=== PATIENT | male | born 1960 | race Caucasian/White ===

== ENCOUNTER 2019-03-08 16:44 | Emergency (ER) | payer MEDICARE ==
--- NOTE | 2019-03-08 17:20 | XRAY ---
Indication: Altered mental status. Syncope. Comparison: None Portable chest demonstrates normal heart and lungs. Bony thorax intact with mild degenerative changes.
--- NOTE | 2019-03-08 17:23 | XRAY ---
Indication: Slurred speech and syncope. Possible stroke. Multiple contiguous axial images obtained through the head without contrast. Comparison: None Age-appropriate global atrophy and minimal periventricular degenerative micro-ischemia bilaterally. Small 1.4 cm focus old infarct right basal ganglia and remote appearing right internal capsule lacunar infarcts posteriorly. No acute intracranial hemorrhage, abnormal extra-axial fluid collection, or mass effect. Fourth ventricle is midline without hydrocephalus. Dean-white matter differentiation preserved. Bony calvarium intact. There is opacification of the visualized left maxillary sinus. Impression: 1. Normal aging brain including atrophy and minimal degenerative microsphere. 2. Old right basal ganglia infarct and right internal capsule lacunar infarcts. 3. Left maxillary sinus disease. 4. No acute intracranial abnormalities. CTDI 56.98
[2019-03-08 18:22] LABS: ALBUMIN 4.1 g/dL (3.5-5.0); ALKALINE PHOSPHATASE 120 U/L (38-126); ANION GAP 15.6 MEQ/L (5-15); BLOOD UREA NITROGEN 30 mg/dL (9-20); CHLORIDE 100 mmol/L (98-107); Calcium 9.5 mg/dL (8.4-10.2); Carbon Dioxide 27 mmol/L (22-30); Creatinine 1 1.29 mg/dL (0.66-1.25); Glucose 102 mg/dL (74-106); Potassium 3.8 mmol/L (3.5-5.1); SGOT/AST 32 U/L (17-59); SGPT/ALT 37 U/L (0-50); SODIUM 138 mmol/L (137-145); Total Protein 7.7 g/dL (6.3-8.2)
[2019-03-08 18:23] LABS: ETHYL ALCOHOL < 10 mg/dL (0-10)
[2019-03-08 18:39] LABS: Absolute Neutrophil Ct (ANC) 6.23 (1.4-6.9); BASOPHIL % 0.3 % (0.0-0.4); Basophil (Absolute #) 0.03 (0-0.4); Eosinophil % 2.9 % (0.00-5.0); Eosinophil (Absolute #) 0.27 (0-0.5); Hematocrit 45.5 % (42-50); Hemoglobin 15.4 gm/dl (12.5-18.0); Lymphocyte (Absolute #) 1.63 (1.0-4.6); Lymphocytes % 17.8 % (24.0-44.0); Mean Cell Volume 90.1 fl (78-100); Mean Corpuscular Hemoglobin 30.5 pg (26-32); Mean Corpuscular Hgb Concent. 33.8 g/dl (32-36); Mean Platelet Volume 10.6 fl (6-9.5); Monocytes % 10.9 % (0.0-12.0); Neutrophil % 68.1 % (36.0-66.0); Platelet Count 231 K/mm3 (150-450); Red Blood Count 5.05 M/mm3 (4.1-5.6); Red Cell Distribution Width 13.9 % (11.5-14.0); White Blood Count 9.2 K/mm3 (4.0-10.5)
--- NOTE | 2019-03-08 19:04 | ERPHSYRPT ---
- History of Present Illness Time Seen by Provider: 03/08/19 17:40 Patient Subjective Stated Complaint: Syncope Triage Nursing Assessment: Patient brought to ED via EMS and transferred to bed with assist 2. Patient A+O X3. Patient's skin pink, warm and dry. Patient denies pain or discomfort. Patient's stated patient was found "passed out " earlier today and was taken per EMS to [facility]. Patient was sent home due to hospital not finding anything wrong. Patient's left to get children from school and found patient "passed out" again. Patient doesn 't remember events. Physician History: ppatient is a 50-year-old white male with a history of multiple CVAs and coronary artery disease his last CVA was January 17 bleeding with some left- sided deficits. He was found unresponsive in the hallway by the time EMS got him and brought him here he was alert and oriented x4 this problem started earlier in the day when physical therapy and noticed his blood pressure was 80/ 50 they encouraged him to go to bring count A. he was there he was observed for 2 hours I cannot find any record of orthostatic blood pressure intact he was sent home and than as mentioned above was found unresponsive in the topete. Witnessed: by family Prior Episodes: multiple episodes today Timing/Duration: today Precipitating Factors: unknown Context: standing Charcter of event(s): collapsed, felt faint Allergies/Adverse Reactions: No Known Drug Allergies Allergy (Unverified 03/08/19 16:47) Hx Influenza Vaccination/Date Given: No Hx Pneumococcal Vaccination/Date Given: Yes Immunizations Up to Date: Yes - Past Medical History Pertinent Past Medical History: Yes Neurological History: Stroke, TIA, Other ENT History: No Pertinent History Cardiac History: Hypertension, Myocardial Infarction ([place]) Respiratory History: No Pertinent History Endocrine Medical History: No Pertinent History Musculoskeletal History: Arthritis GI Medical History: No Pertinent History History: No Pertinent History Psycho-Social History: Depression Male Reproductive Disorders: No Pertinent History - Past Surgical History Past Surgical History: Yes Neuro Surgical History: No Pertinent History Cardiac: No Pertinent History Respiratory: No Pertinent History Gastrointestinal: Cholecystectomy Genitourinary: No Pertinent History Musculoskeletal: Joint Replacement Male Surgical History: No Pertinent History Other Surgical History: Left total knee replacement - Social History Smoking Status: Current every day smoker How long have you smoked: years Exposure to second hand smoke: No Drug Use: none Patient Lives Alone: No - Review of Systems Constitutional: No Fever, No Chills Eyes: No Symptoms Ears, Nose, & Throat: No Symptoms Respiratory: No Cough, No Dyspnea Cardiac: No Chest Pain, No Edema, No Syncope Abdominal/Gastrointestinal: No Abdominal Pain, No Nausea, No Vomiting, No Diarrhea Genitourinary Symptoms: No Dysuria Musculoskeletal: No Back Pain, No Neck Pain Skin: No Rash Neurological: Dizziness, No Focal Weakness, No Sensory Changes Psychological: No Symptoms Endocrine: No Symptoms All Other Systems: Reviewed and Negative Physical Exam - Nursing Vital Signs Nursing Vital Signs: Initial Vital Signs Temperature 98.0 F 03/08/19 16:48 Pulse Rate 67 03/08/19 16:48 Respiratory Rate 18 03/08/19 16:48 Blood Pressure 112/77 03/08/19 16:48 O2 Sat by Pulse Oximetry 100 03/08/19 16:48 Pain Scale Pain Intensity 0 - [place] Coma Scale Best Eye Response ([place]): (4) open spontaneously Best Verbal Response ([place]): (5) oriented Best Motor Response ([place]): (6) obeys commands [place] Total: 15 - Physical Exam General Appearance: no apparent distress, alert Eye Exam: bilateral eye: PERRL, EOMI Ears, Nose, Throat Exam: normal ENT inspection, pharynx normal, moist mucous membranes Neck Exam: normal inspection, non-tender, supple, full range of motion Respiratory: normal breath sounds, lungs clear, No chest tenderness, No respiratory distress Cardiovascular: regular rate/rhythm, capillary refill <2 sec, No murmur, No pulse deficit Gastrointestinal: soft, No tenderness, No distention, No mass Back Exam: normal inspection, normal range of motion, No CVA tenderness, No vertebral tenderness Extremity Exam: normal inspection, normal range of motion, pelvis stable, No tenderness Mental Status: alert, 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, 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 Exam: normal speech, PERRL, No facial droop Coordination/Gait: normal finger to nose Motor/Sensory: no motor deficit, no sensory deficit, no pronator drift Skin Exam: normal color, warm, dry, No rash SpO2: 96 - Course Nursing assessment & vital signs reviewed: Yes EKG Interpreted by Me: RATE (70), Sinus Rhythm, NORMAL AXIS, Non-specific ST Changes Ordered Tests: Active Orders 24 hr Category Date Time Status EKG-ER Only STAT Care 03/08/19 16:49 Active NPO (ED) STAT Care 03/08/19 16:48 Active Orthostatic Vital Signs STAT Care 03/08/19 16:49 Active CHEST 1 VIEW (PORTABLE) Stat Exams 03/08/19 16:48 Completed HEAD WITHOUT CONTRAST [CT] Stat Exams 03/08/19 16:48 Completed CBC W DIFF Stat Lab 03/08/19 18:30 Completed CMP Stat Lab 03/08/19 18:05 Completed ETHYL ALCOHOL Stat Lab 03/08/19 18:05 Completed Lactic Acid Stat Lab 03/08/19 18:35 Completed MAGNESIUM Stat Lab 03/08/19 18:05 Completed PTT Stat Lab 03/08/19 18:30 Received TROPONIN Q3H Lab 03/08/19 18:30 Received TROPONIN Q3H Lab 03/08/19 20:00 Ordered TROPONIN Q3H Lab 03/08/19 23:00 Ordered TROPONIN Q3H Lab 03/09/19 02:00 Ordered TROPONIN Q3H Lab 03/09/19 05:00 Ordered UA W/RFX UR CULTURE Stat Lab 03/08/19 18:48 Ordered Urine Triage Profile Stat Lab 03/08/19 18:48 Ordered Lab/Rad Data: Laboratory Result Diagrams 03/08/19 18:30 03/08/19 18:05 Laboratory Results 03/08/19 03/08/19 03/08/19 Range/Units 18:35 18:30 18:05 WBC 9.2 (4.0-10.5) K/mm3 RBC 5.05 (4.1-5.6) M/mm3 Hgb 15.4 (12.5-18.0) gm/dl Hct 45.5 (42-50) % MCV 90.1 (78-100) fl MCH 30.5 (26-32) pg MCHC 33.8 (32-36) g/dl RDW 13.9 (11.5-14.0) % Plt Count 231 (150-450) K/mm3 MPV 10.6 H (6-9.5) fl Gran % 68.1 H (36.0-66.0) % Eos # (Auto) 0.27 (0-0.5) Absolute Lymphs (auto) 1.63 (1.0-4.6) Absolute Monos (auto) 1.00 (0.0-1.3) Lymphocytes % 17.8 L (24.0-44.0) % Monocytes % 10.9 (0.0-12.0) % Eosinophils % 2.9 (0.00-5.0) % Basophils % 0.3 (0.0-0.4) % Absolute Granulocytes 6.23 (1.4-6.9) Basophils # 0.03 (0-0.4) Sodium 138 (137-145) mmol/L Potassium 3.8 (3.5-5.1) mmol/L Chloride 100 (98-107) mmol/L Carbon Dioxide 27 (22-30) mmol/L Anion Gap 15.6 H (5-15) MEQ/L BUN 30 H (9-20) mg/dL Creatinine 1.29 H (0.66-1.25) mg/dL Estimated GFR > 60.0 ML/MIN Glucose 102 (74-106) mg/dL Lactic Acid 1.7 (0.4-2.0) Calcium 9.5 (8.4-10.2) mg/dL Magnesium 2.0 (1.6-2.3) mg/dL Total Bilirubin 0.60 (0.2-1.3) mg/dL AST 32 (17-59) U/L ALT 37 (0-50) U/L Alkaline Phosphatase 120 (38-126) U/L Serum Total Protein 7.7 (6.3-8.2) g/dL Albumin 4.1 (3.5-5.0) g/dL Ethyl Alcohol < 10 (0-10) mg/dL - Progress Progress: improved - Departure Referrals: DELMI BOLAND MD [Primary Care Provider] -
[2019-03-08 19:26] LABS: Appearance CLOUDY (CLEAR); Bilirubin NEGATIVE (NEGATIVE); Blood SMALL Ery/ul (0-5); Glucose NEGATIVE (NEGATIVE); Ketones NEGATIVE (NEGATIVE); Leukocyte Esterase TRACE (NEGATIVE); Mucus SLIGHT /HPF (NEGATIVE); Nitrite NEGATIVE (NEGATIVE); Protein,Urine Dip 30 (Negative); RBC 0-2 /HPF (0-2); Specific Gravity 1.018 (1.005-1.025); Urobilinogen 2 mg/dL (0-1); WBC 0-2 /HPF (0-5)
[2019-03-08 19:29] LABS: Amphetamine,Urine NEGATIVE (NEGATIVE); Barbiturate,Urine NEGATIVE (NEGATIVE); Benzodiazepine,Urine NEGATIVE (NEGATIVE); Methadone,Urine NEGATIVE (NEGATIVE); Opiate,Urine NEGATIVE (NEGATIVE); PCP,Urine NEGATIVE (NEGATIVE); THC,Urine NEGATIVE (NEGATIVE)
[2019-03-08 19:34] LABS: Cocaine,Urine NEGATIVE (NEGATIVE)
[2019-03-08 20:56] VITALS: BP 127/80; PULSE 62; O2SAT 95
== END 2019-03-08 20:50 | disposition critical access hospital (66) ==
LOC: ED 16:44
DX: R55 Syncope and collapse (principal); I25.10 Atherosclerotic heart disease of native coronary artery without angina pectoris; Z86.73 Personal history of transient ischemic attack (TIA), and cerebral infarction without residual deficits; I10 Essential (primary) hypertension
CPT/HCPCS: 36415; 70450; 71045; 80053; 80307; 81001; 83605; 83735; 84484; 85025; 85730; 93005; 99285; G0480

== ENCOUNTER 2022-02-27 12:20 | Observation (INO) | payer MEDICARE ==
--- NOTE | 2022-02-27 12:28 | ERPHSYRPT ---
- History of Present Illness Time Seen by Provider: 02/27/22 12:27 Source: patient, family, EMS Exam Limitations: physical impairment Patient Subjective Stated Complaint: slurred speech and L sided weakness since last night Triage Nursing Assessment: . Physician History: This is a 61-year-old white male patient brought in by ambulance service because of weakness and strokelike symptoms. This patient states that his symptoms began approximately 9 PM yesterday on 02/26/2022. Patient symptoms persisted throughout the night and into the morning. Patient has a history of 11 CVAs in the past with left-sided residual weakness and multiple TIAs. Patient has had syncopal episodes in the past as well. Patient is on Plavix. He denies head injury. He denies headache. His primary symptoms have been blurred vision, double vision and slurred speech. He states he does not normally have those symptoms. He denies chest pain. He denies abdominal pain. He is not short of breath. Time of Onset/Last Time Seen Normal: Prior to 9 PM yesterday Timing/Duration: yesterday Severity: moderate Character of Deficits: new weakness, impaired speech, vision problems Deficits: decrease ability to walk Baseline/Normal Cognition: alert 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 Current Cognition: alert 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 Baseline Gait: walks w/o assistance Associated Symptoms: slurred speech, vision changes, No confusion, No loss of consciousness, No chest pain Allergies/Adverse Reactions: No Known Drug Allergies Allergy (Verified 02/27/22 12:27) Home Medications: AMITRIPTYLINE HCL 50 mg Tab [AMITRIPTYLINE HCL 50 mg Tablet] 50 mg PO DAILY 02/27/22 [History] Amlodipine Besylate/Benazepril [Amlodipine-Benazepril 5-10 mg] 1 tablet PO DAILY 02/27/22 [History] Cetirizine HCl 10 mg PO DAILY 02/27/22 [History] Clopidogrel Bisulfate [Clopidogrel] 75 mg PO DAILY 02/27/22 [History] Gabapentin 900 mg PO TID PRN 02/27/22 [History] Venlafaxine HCl [Effexor Xr] 150 mg PO DAILY 02/27/22 [History] Hx Influenza Vaccination/Date Given: No Hx Pneumococcal Vaccination/Date Given: Yes Travel Risk - International Travel Have you traveled outside of the country in past 3 weeks: No - Coronavirus Screening Are you exhibiting any of the following symptoms?: No - Vaccine Status Have you recieved a Covid-19 vaccination: Yes 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: [employer] - Review of Systems Constitutional: No Symptoms Eyes: No Symptoms Ears, Nose, & Throat: No Symptoms Respiratory: No Symptoms Cardiac: No Symptoms Abdominal/Gastrointestinal: No Symptoms Genitourinary Symptoms: No Symptoms Musculoskeletal: No Symptoms Skin: No Symptoms Neurological: Speech Changes, Other (Vision changes) Psychological: No Symptoms Endocrine: No Symptoms Hematologic/Lymphatic: No Symptoms Immunological/Allergic: No Symptoms All Other Systems: Reviewed and Negative - Past Medical History Pertinent Past Medical History: Yes Neurological History: Stroke, TIA, Other ENT History: No Pertinent History Cardiac History: Hypertension, Myocardial Infarction ([place]) Respiratory History: No Pertinent History Endocrine Medical History: No Pertinent History Musculoskeletal History: Arthritis GI Medical History: No Pertinent History History: No Pertinent History Psycho-Social History: Depression Male Reproductive Disorders: No Pertinent History - Past Surgical History Past Surgical History: Yes Neuro Surgical History: No Pertinent History Cardiac: No Pertinent History Respiratory: No Pertinent History Gastrointestinal: Cholecystectomy Genitourinary: No Pertinent History Musculoskeletal: Joint Replacement Male Surgical History: No Pertinent History Other Surgical History: Left total knee replacement - Social History Smoking Status: Current every day smoker How long have you smoked: years Exposure to second hand smoke: No Drug Use: none Patient Lives Alone: No - Nursing Vital Signs Nursing Vital Signs: Initial Vital Signs Temperature 98.2 F 02/27/22 12:22 Pulse Rate 82 02/27/22 12:22 Respiratory Rate 16 02/27/22 12:22 Blood Pressure 155/105 02/27/22 12:22 O2 Sat by Pulse Oximetry 99 02/27/22 12:22 Pain Scale Pain Intensity 0 - [place] Coma Scale Best Eye Response ([place]): (4) open spontaneously Best Verbal Response ([place]): (5) oriented Best Motor Response ([place]): (6) obeys commands [place] Total: 15 - Physical Exam General Appearance: no apparent distress, alert, anxiety Eye Exam: bilateral eye: normal inspection, PERRL, EOMI Ears, Nose, Throat Exam: normal ENT inspection, moist mucous membranes Neck Exam: normal inspection, non-tender, supple, full range of motion Respiratory: normal breath sounds, lungs clear, airway intact, No chest tenderness, No respiratory distress Cardiovascular: regular rate/rhythm, normal heart sounds, normal peripheral pulses Gastrointestinal: soft, normal bowel sounds, No tenderness Rectal Exam: not done Back Exam: normal inspection, normal range of motion, No CVA tenderness, No jae tebral tenderness Extremity Exam: normal inspection, other (Weakness left upper and left lower extremity) Mental Status: alert, 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, 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 Exam: abnormal speech (Left side slurred speech), facial droop Skin Exam: normal color, warm, dry SpO2 Interpretation: normal SpO2: 99 O2 Delivery: Room Air - Course Nursing assessment & vital signs reviewed: Yes EKG Interpreted by Me: RATE (71), Sinus Rhythm, NORMAL AXIS, NORMAL INTERVALS, NORMAL QRS, NORMAL ST-T, Other (No acute ischemic changes on today's EKG) Ordered Tests: Active Orders 24 hr Category Date Time Status Lead Nuclear Medicine Technologist STAT Care 02/27/22 12:33 Completed EKG-ER Only STAT Care 02/27/22 12:32 Completed IV Insertion STAT Care 02/27/22 12:32 Completed NPO (ED) STAT Care 02/27/22 12:32 Completed POCT Glucose Check STAT Care 02/27/22 12:[address] in Observation ROUTINE Care 02/27/22 16:33 Active Pulse Oximetry (ED) STAT Care 02/27/22 12:32 Completed Telemetry Q12H Care 02/27/22 16:33 Active Weight,Daily 0600 Care 02/27/22 16:33 Active Heart-Healthy Diet Diet 02/27/22 Dinner Active CTA HEAD W AND/OR WO CONTRAST [CT] Stat Exams 02/27/22 16:33 Ordered HEAD WITHOUT CONTRAST [CT] Stat Exams 02/27/22 13:11 Completed MRI BRAIN W & W/O CONTRAST [MRI] Stat Exams 02/28/22 08:00 Ordered BLOOD CULTURE Stat Lab 02/27/22 13:00 Received CBC W DIFF AM.LAB Lab 02/28/22 04:00 Ordered CBC W DIFF Stat Lab 02/27/22 12:55 Completed CMP AM.LAB Lab 02/28/22 04:00 Ordered CMP Stat Lab 02/27/22 12:55 Completed PROTIME WITH INR Stat Lab 02/27/22 12:55 Completed UA W/RFX CULTURE Stat Lab 02/27/22 Ordered Pulse Oximetry ROUTINE RT 02/27/22 16:33 Completed Transfer Order Routine Transfer 02/27/22 Completed Medication Summary Generic Name Dose Route Start Last Admin Trade Name Freq PRN Reason Stop Dose Admin Acetaminophen 650 mg 02/27/22 16:33 Acetaminophen 325 Mg Tablet PO 03/29/22 16:32 Q4H PRN PRN PAIN, FEVER, HEADACHE Aspirin 325 mg 02/28/22 10:00 Aspirin 325 Mg Tablet.Ec PO 03/30/22 09:59 DAILY VERONIKA Sodium Chloride 1,000 mls @ 50 mls/hr 02/27/22 16:33 Sodium Chloride 0.9% 1000 Ml IV 03/29/22 16:32 .Q20H VERONIKA Ondansetron HCl 4 mg 02/27/22 16:33 Ondansetron Hcl 4 Mg/2 Ml Vial IV 03/29/22 16:32 Q6H PRN PRN NAUSEA/VOMITING Ticagrelor 90 mg 02/27/22 22:00 Ticagrelor 90 Mg Tablet PO 03/29/22 21:59 BID VERONIKA Discontinued Medications Generic Name Dose Route Start Last Admin Trade Name Leonq PRN Reason Stop Dose Admin Aspirin 325 mg 02/27/22 15:11 02/27/22 16:19 Aspirin 325 Mg Tablet.Ec PO 02/27/22 15:12 Not Given STAT ONE Aspirin 324 mg 02/27/22 15:14 02/27/22 15:16 Aspirin 81 Mg Tab.Chew PO 02/27/22 15:15 324 mg STAT ONE Administration Atorvastatin Calcium 80 mg 02/27/22 15:11 02/27/22 15:16 Atorvastatin Calcium 40 Mg Tablet PO 02/27/22 15:12 80 mg STAT STA Administration Atorvastatin Calcium Confirm 02/27/22 15:14 Atorvastatin Calcium 40 Mg Tablet Administered 02/27/22 15:15 Dose 80 mg .ROUTE .STK-MED ONE Ticagrelor 180 mg 02/27/22 15:10 02/27/22 15:19 Ticagrelor 90 Mg Tablet PO 02/27/22 15:11 180 mg STAT ONE Administration Lab/Rad Data: Laboratory Result Diagrams 02/27/22 12:55 02/27/22 12:55 Laboratory Results 02/27/22 02/27/22 02/27/22 Range/Units 15:31 12:55 12:55 WBC (4.0-10.5) x10^3/uL RBC (4.1-5.6) x10^6/uL Hgb (12.5-18.0) g/dL Hct (42-50) % MCV (78-100) fL MCH (26-32) pg MCHC (32-36) g/dL RDW (11.5-14.0) % Plt Count (150-450) x10^3/uL MPV (7.5-11.0) fL Gran % (36.0-66.0) % Immature Gran % (Auto) (0.00-0.4) % Nucleat RBC Rel Count (0.00-0.1) % Eos # (Auto) (0-0.5) x10^3/uL Immature Gran # (Auto) (0.00-0.03) x10^3u/L Absolute Lymphs (auto) (1.0-4.6) x10^3/uL Absolute Monos (auto) (0.0-1.3) x10^3/uL Absolute Nucleated RBC (0.00-0.01) x10^3u/L Lymphocytes % (24.0-44.0) % Monocytes % (0.0-12.0) % Eosinophils % (0.00-5.0) % Basophils % (0.0-0.4) % Absolute Granulocytes (1.4-6.9) x10^3/uL Basophils # (0-0.4) x10^3/uL PT 11.9 (9.4-12.5) SECONDS INR 1.14 (0.8-3.0) Sodium 135 L (137-145) mmol/L Potassium 4.2 (3.5-5.1) mmol/L Chloride 101 (98-107) mmol/L Carbon Dioxide 26 (22-30) mmol/L Anion Gap 11.5 (5-15) MEQ/L BUN 23 H (9-20) mg/dL Creatinine 0.90 (0.66-1.25) mg/dL Estimated GFR > 60.0 ML/MIN Glucose 94 (74-106) mg/dL Calcium 9.2 (8.4-10.2) mg/dL Total Bilirubin 0.60 (0.2-1.3) mg/dL AST 26 (17-59) U/L ALT 19 (0-50) U/L Alkaline Phosphatase 149 H (38-126) U/L Serum Total Protein 7.6 (6.3-8.2) g/dL Albumin 4.2 (3.5-5.0) g/dL Influenza Type A Ag NEGATIVE (NEGATIVE) Influenza Type B Ag NEGATIVE (NEGATIVE) RSV (PCR) NEGATIVE (Negative) SARS-CoV-2 (PCR) NEGATIVE (NEGATIVE) 02/27/22 Range/Units 12:55 WBC 7.3 (4.0-10.5) x10^3/uL RBC 4.93 (4.1-5.6) x10^6/uL Hgb 14.8 (12.5-18.0) g/dL Hct 44.9 (42-50) % MCV 91.1 (78-100) fL MCH 30.0 (26-32) pg MCHC 33.0 (32-36) g/dL RDW 12.7 (11.5-14.0) % Plt Count 287 (150-450) x10^3/uL MPV 10.1 (7.5-11.0) fL Gran % 67.1 H (36.0-66.0) % Immature Gran % (Auto) 0.3 (0.00-0.4) % Nucleat RBC Rel Count 0.0 (0.00-0.1) % Eos # (Auto) 0.19 (0-0.5) x10^3/uL Immature Gran # (Auto) 0.02 (0.00-0.03) x10^3u/L Absolute Lymphs (auto) 1.62 (1.0-4.6) x10^3/uL Absolute Monos (auto) 0.49 (0.0-1.3) x10^3/uL Absolute Nucleated RBC 0.00 (0.00-0.01) x10^3u/L Lymphocytes % 22.3 L (24.0-44.0) % Monocytes % 6.7 (0.0-12.0) % Eosinophils % 2.6 (0.00-5.0) % Basophils % 1.0 (0.0-0.4) % Absolute Granulocytes 4.89 (1.4-6.9) x10^3/uL Basophils # 0.07 (0-0.4) x10^3/uL PT (9.4-12.5) SECONDS INR (0.8-3.0) Sodium (137-145) mmol/L Potassium (3.5-5.1) mmol/L Chloride (98-107) mmol/L Carbon Dioxide (22-30) mmol/L Anion Gap (5-15) MEQ/L BUN (9-20) mg/dL Creatinine (0.66-1.25) mg/dL Estimated GFR ML/MIN Glucose (74-106) mg/dL Calcium (8.4-10.2) mg/dL Total Bilirubin (0.2-1.3) mg/dL AST (17-59) U/L ALT (0-50) U/L Alkaline Phosphatase (38-126) U/L Serum Total Protein (6.3-8.2) g/dL Albumin (3.5-5.0) g/dL Influenza Type A Ag (NEGATIVE) Influenza Type B Ag (NEGATIVE) RSV (PCR) (Negative) SARS-CoV-2 (PCR) (NEGATIVE) - Progress Progress: improved, re-examined Progress Note: 02/27/22 13:39 CT of the head without contrast shows atrophy, degenerative micro ischemia and multifocal remote infarcts of the right basal ganglia. There are no new/acute abnormalities. 02/27/22 15:12 Medical decision making: This patient was evaluated by telemetry neurologist. The neurologist recommends stopping the Plavix. Provide the patient with 180 mg Brilinta now, 325 mg of aspirin now, and 80 mg of Lipitor now. Patient is to stop Plavix altogether and switch to Brilinta 90 mg p.o. twice daily as well as a daily aspirin 325 mg. Patient should be placed in the hospital and undergo CTA of the head and MRI of the brain. 02/27/22 15:35 Medical decision-making: I spoke with Dr. Harper who is covering for unassigned patients today. I reviewed the patient history, physical findings, results of his work-up and the results of the telemetry neurologist findings and recommendations. He agrees to place him in observation and we will have been on a monitored bed. 02/27/22 17:03 Patient telemetry neurologist final assessment and recommendations were received by me at approximately 4:45 PM. The recommendations in writing are different than what Dr. Grubbs verbalized to me and to nurse Martino. What he verbalized to me was the patient should stop his Plavix and be put on Brilinta 180 mg oral bolus followed by 90 mg orally twice a day and a baby aspirin once a day. He is also recommended that the patient be put on 80 mg Lipitor. He also recommend MRI brain without contrast/CTA head and neck in the ED to evaluate his vasculature. He also recommended fasting lipid level and hemoglobin A1c. His written recommendations stated to continue the Plavix. I have had the nurse Salena attempt to contact the telemetry neurologist for clarification. I already started the verbal recommendations by the telemetry neurologist. Discussed with : Luis Counseled pt/family regarding: lab results, diagnosis, rad results - Departure Departure Disposition: Observation Clinical Impression: Brainstem infarction Condition: Stable Critical Care Time: No
[2022-02-27 13:08] LABS: Absolute Neutrophil Ct (ANC) 4.89 x10^3/uL (1.4-6.9); Basophil (Absolute #) 0.07 x10^3/uL (0-0.4); Eosinophil % 2.6 % (0.00-5.0); Eosinophil (Absolute #) 0.19 x10^3/uL (0-0.5); Hematocrit 44.9 % (42-50); Hemoglobin 14.8 g/dL (12.5-18.0); Lymphocyte (Absolute #) 1.62 x10^3/uL (1.0-4.6); Lymphocytes % 22.3 % (24.0-44.0); Mean Cell Volume 91.1 fL (78-100); Mean Platelet Volume 10.1 fL (7.5-11.0); Monocyte (Absolute #) 0.49 x10^3/uL (0.0-1.3); Monocytes % 6.7 % (0.0-12.0); Neutrophil % 67.1 % (36.0-66.0); Platelet Count 287 x10^3/uL (150-450); Red Blood Count 4.93 x10^6/uL (4.1-5.6); Red Cell Distribution Width 12.7 % (11.5-14.0); White Blood Count 7.3 x10^3/uL (4.0-10.5)
[2022-02-27 13:20] LABS: INR 1.14 (0.8-3.0); PROTIME 11.9 SECONDS (9.4-12.5)
--- NOTE | 2022-02-27 13:31 | XRAY ---
Indication: Slurred speech. Blurred vision. Multiple contiguous images obtained through the head without contrast. Comparison: March 08, 2019 Base of brain slightly degraded by motion artifact. Again age-appropriate global atrophy, mild periventricular degenerative micro-ischemia bilaterally, and multifocal small remote infarcts right basal ganglia. No acute intracranial hemorrhage, abnormal extra-axial fluid collection, or mass effect. Fourth ventricle is midline without hydrocephalus. Dean-white matter differentiation preserved. Bony calvarium intact. Again opacification visualized left maxillary sinus. Near-complete opacification right mastoid air cells and right middle ear presumed inflammatory. Impression: 1. Again atrophy, degenerative micro-ischemia, and multifocal remote infarcts right basal ganglia. 2. No new/acute intracranial abnormalities. 3. New opacification right mastoid air cells and right middle ear presumed inflammatory. 4. Again chronic left axillary sinus disease.
[2022-02-27 13:34] LABS: ALBUMIN 4.2 g/dL (3.5-5.0); ALKALINE PHOSPHATASE 149 U/L (38-126); ANION GAP 11.5 MEQ/L (5-15); BLOOD UREA NITROGEN 23 mg/dL (9-20); CHLORIDE 101 mmol/L (98-107); Calcium 9.2 mg/dL (8.4-10.2); Carbon Dioxide 26 mmol/L (22-30); EST GLOMERULAR FILTRATION RATE > 60.0 ML/MIN; Glucose 94 mg/dL (74-106); Potassium 4.2 mmol/L (3.5-5.1); SGOT/AST 26 U/L (17-59); SGPT/ALT 19 U/L (0-50); SODIUM 135 mmol/L (137-145); Total Protein 7.6 g/dL (6.3-8.2)
[2022-02-27] MEDS ORDERED: BRILINTA PO ONE (15:10)
[2022-02-27] MEDS ORDERED: LIPITOR 40MG PO STA (15:11)
[2022-02-27] MEDS ORDERED: Ecotrin 325 MG PO ONE (15:11)
[2022-02-27] MEDS ORDERED: BABY ASPIRIN 81 MG CHEW PO ONE (15:14)
[2022-02-27] MEDS ORDERED: LIPITOR 40MG ONE (15:14)
[2022-02-27 16:10] LABS: INFLUENZA A NEGATIVE (NEGATIVE); INFLUENZA B NEGATIVE (NEGATIVE); RESPIRATORY SYNCTIAL VIRUS NEGATIVE (Negative); SARS-CoV-2 Xpert Express NEGATIVE (NEGATIVE)
[2022-02-27] MEDS ORDERED: Sodium Chloride 0.9% 1000 ML 1,000 ML IV SCH (16:33)
[2022-02-27] MEDS ORDERED: TYLENOL 325 MG PO PRN (16:33)
[2022-02-27] MEDS ORDERED: Zofran 4 MG/2 ML VIAL IV PRN (16:33)
[2022-02-27] MEDS ORDERED: FLUZONE QUAD 2022-2023 SYRINGE IM ONE (16:53)
[2022-02-27] MEDS: BRILINTA PO SCH (21:38)
[2022-02-27] MEDS ORDERED: NEURONTIN PO ONE (22:00)
[2022-02-28 04:43] LABS: Appearance CLEAR (CLEAR); Bilirubin NEGATIVE (NEGATIVE); Dipstick done @ ? MAIN LAB; Glucose NEGATIVE (NEGATIVE); Ketones TRACE (NEGATIVE); Nitrite NEGATIVE (NEGATIVE); Ph 6.5 (5-6); Protein,Urine Dip NEGATIVE (Negative); RBC NEGATIVE Ery/ul (0-5); Urobilinogen 4 mg/dL (0-1)
[2022-02-28 04:44] LABS: WBC 0-2 /HPF (0-5)
[2022-02-28 04:45] LABS: Bacteria NONE SEEN /HPF (NEGATIVE); Urine Cultured Indicated? NO
[2022-02-28 05:14] LABS: Absolute Neutrophil Ct (ANC) 5.22 x10^3/uL (1.4-6.9); Basophil (Absolute #) 0.09 x10^3/uL (0-0.4); Eosinophil % 3.9 % (0.00-5.0); Eosinophil (Absolute #) 0.34 x10^3/uL (0-0.5); Hemoglobin 14.5 g/dL (12.5-18.0); Lymphocyte (Absolute #) 2.16 x10^3/uL (1.0-4.6); Lymphocytes % 24.9 % (24.0-44.0); Mean Cell Volume 88.8 fL (78-100); Mean Corpuscular Hgb Concent. 33.7 g/dL (32-36); Mean Platelet Volume 10.1 fL (7.5-11.0); Monocyte (Absolute #) 0.81 x10^3/uL (0.0-1.3); Monocytes % 9.4 % (0.0-12.0); Neutrophil % 60.3 % (36.0-66.0); Platelet Count 257 x10^3/uL (150-450); Red Blood Count 4.84 x10^6/uL (4.1-5.6); Red Cell Distribution Width 12.8 % (11.5-14.0); White Blood Count 8.7 x10^3/uL (4.0-10.5)
[2022-02-28 05:45] LABS: ALBUMIN 3.8 g/dL (3.5-5.0); ALKALINE PHOSPHATASE 129 U/L (38-126); ANION GAP 10.2 MEQ/L (5-15); BLOOD UREA NITROGEN 19 mg/dL (9-20); CHLORIDE 100 mmol/L (98-107); Calcium 8.4 mg/dL (8.4-10.2); Carbon Dioxide 27 mmol/L (22-30); Creatinine 1 0.84 mg/dL (0.66-1.25); EST GLOMERULAR FILTRATION RATE > 60.0 ML/MIN; Glucose 94 mg/dL (74-106); Potassium 3.4 mmol/L (3.5-5.1); SGOT/AST 26 U/L (17-59); SGPT/ALT 18 U/L (0-50); SODIUM 134 mmol/L (137-145); Total Protein 7.2 g/dL (6.3-8.2)
[2022-02-28 05:49] LABS: Risk Ratio 3.5
--- NOTE | 2022-02-28 08:12 | PCM.HP ---
History of Present Illness - Chief Complaint Chief Complaint: brainstem infarct History of Present Illness: is a 61 year old male with no local physician who came to the ER complaining of slurred speech and left arm and leg weakness. He has a previous history of stroke that affected his left side, his symptoms had been present since the day before he arrived. Neurology consult via telemed visit in ER suggested further workup and change plavix to brillinta. . - Review of Systems Constitutional: No Fever, No Chills Respiratory: No Cough, No Short Of Breath Cardiac: No Chest Pain, No Edema, No Syncope Abdominal/Gastrointestinal: No Abdominal Pain, No Nausea, No Vomiting, No Diarrhea Neurological: Focal Weakness, Speech Changes Psychological: No Alcohol Abuse, No Drug Abuse Medications & Allergies Home Medications: Home Medication List AMITRIPTYLINE HCL 50 mg Tab [AMITRIPTYLINE HCL 50 mg Tablet] 50 mg PO DAILY 02/27/22 [History Confirmed 02/27/22] Amlodipine Besylate/Benazepril [Amlodipine-Benazepril 5-10 mg] 1 tablet PO DAILY 02/27/22 [History Confirmed 02/27/22] Cetirizine HCl 10 mg PO DAILY 02/27/22 [History Confirmed 02/27/22] Clopidogrel Bisulfate [Clopidogrel] 75 mg PO DAILY 02/27/22 [History Confirmed 02/27/22] Gabapentin 900 mg PO TID PRN 02/27/22 [History Confirmed 02/27/22] Venlafaxine HCl [Effexor Xr] 150 mg PO DAILY 02/27/22 [History Confirmed 02/27/22] Allergies/Adverse Reactions: Allergies Allergy/AdvReac Type Severity Reaction Status Date / Time No Known Drug Allergies Allergy Verified 02/27/22 12:27 - Past Medical History Past Medical History: Yes Neurological History: Stroke, TIA, Other ENT History: No Pertinent History Cardiac History: Hypertension, Myocardial Infarction ([place]) Respiratory History: No Pertinent History Endocrine Medical History: No Pertinent History Musculoskelatal History: Arthritis GI Medical History: No Pertinent History History: No Pertinent History Pyscho-Social History: Depression Male Reproductive Disorders: No Pertinent History - Past Surgical History Past Surgical History: Yes Neuro Surgical History: No Pertinent History Cardiac History: No Pertinent History Respiratory Surgery: No Pertinent History GI Surgical History: Cholecystectomy Genitourinary Surgical Hx: No Pertinent History Musculskeletal Surgical Hx: Joint Replacement Male Surgical History: No Pertinent History Other Surgical History: Left total knee replacement - Social History Smoking Status: Current every day smoker How long have you smoked: years Exposure to second hand smoke: No Alcohol: Rarely Drug Use: none - Physical Exam Vital Signs: Vital Signs - 24 hr Temp Pulse Resp BP Pulse Ox 02/28/22 07:23 97.3 F 69 17 161/94 93 L 02/28/22 04:00 97.7 F 68 18 174/90 97 02/28/22 00:00 97.5 F 76 18 159/77 95 02/27/22 19:56 98.0 F 71 24 162/74 95 02/27/22 17:07 99 02/27/22 16:55 97.9 F 73 16 161/85 94 L 02/27/22 16:52 97.9 F 73 16 161/85 94 L 02/27/22 15:13 71 18 147/94 99 02/27/22 14:08 65 12 157/109 95 02/27/22 13:28 66 19 142/87 96 02/27/22 12:35 94 L 02/27/22 12:22 98.2 F 82 16 155/105 99 General Appearance: no apparent distress Neurologic Exam: alert, 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, cooperative, motor deficits (left arm and left leg), slurred speech Respiratory Exam: normal breath sounds, lungs clear, No respiratory distress Cardiovascular Exam: regular rate/rhythm, normal heart sounds, normal peripheral pulses Gastrointestinal/Abdomen Exam: soft, normal bowel sounds, No tenderness, No mass Results - Labs Lab/Micro Results: Lab Results-Last 24 Hours 02/27/22 02/27/22 02/27/22 Range/Units 04:37 12:55 12:55 WBC 7.3 (4.0-10.5) x10^3/uL RBC 4.93 (4.1-5.6) x10^6/uL Hgb 14.8 (12.5-18.0) g/dL Hct 44.9 (42-50) % MCV 91.1 (78-100) fL MCH 30.0 (26-32) pg MCHC 33.0 (32-36) g/dL RDW 12.7 (11.5-14.0) % Plt Count 287 (150-450) x10^3/uL MPV 10.1 (7.5-11.0) fL Gran % 67.1 H (36.0-66.0) % Immature Gran % (Auto) 0.3 (0.00-0.4) % Nucleat RBC Rel Count 0.0 (0.00-0.1) % Eos # (Auto) 0.19 (0-0.5) x10^3/uL Immature Gran # (Auto) 0.02 (0.00-0.03) x10^3u/L Absolute Lymphs (auto) 1.62 (1.0-4.6) x10^3/uL Absolute Monos (auto) 0.49 (0.0-1.3) x10^3/uL Absolute Nucleated RBC 0.00 (0.00-0.01) x10^3u/L Lymphocytes % 22.3 L (24.0-44.0) % Monocytes % 6.7 (0.0-12.0) % Eosinophils % 2.6 (0.00-5.0) % Basophils % 1.0 (0.0-0.4) % Absolute Granulocytes 4.89 (1.4-6.9) x10^3/uL Basophils # 0.07 (0-0.4) x10^3/uL PT (9.4-12.5) SECONDS INR (0.8-3.0) Sodium 135 L (137-145) mmol/L Potassium 4.2 (3.5-5.1) mmol/L Chloride 101 (98-107) mmol/L Carbon Dioxide 26 (22-30) mmol/L Anion Gap 11.5 (5-15) MEQ/L BUN 23 H (9-20) mg/dL Creatinine 0.90 (0.66-1.25) mg/dL Estimated GFR > 60.0 ML/MIN Glucose 94 (74-106) mg/dL Hemoglobin A1c (4.5-6.0) % Calcium 9.2 (8.4-10.2) mg/dL Total Bilirubin 0.60 (0.2-1.3) mg/dL AST 26 (17-59) U/L ALT 19 (0-50) U/L Alkaline Phosphatase 149 H (38-126) U/L Serum Total Protein 7.6 (6.3-8.2) g/dL Albumin 4.2 (3.5-5.0) g/dL Triglycerides (30-150) mg/dL Cholesterol (50-200) mg/dL LDL Cholesterol (30-100) mg/dL HDL Cholesterol (40-60) mg/dL Heart Disease Risk Ratio Urinalys Dipstick Clnc MAIN LAB Urine Color YELLOW (YELLOW) Urine Appearance CLEAR (CLEAR) Urine pH 6.5 (5-6) Ur Specific [place] 1.020 (1.005-1.025) POC Urine Protein Conf NEGATIVE (Negative) Urine Ketones TRACE A (NEGATIVE) Urine Nitrite NEGATIVE (NEGATIVE) Urine Bilirubin NEGATIVE (NEGATIVE) Urine Urobilinogen 4 A (0-1) mg/dL Urine Leukocytes NEGATIVE (NEGATIVE) Urine WBC (Auto) 0-2 (0-5) /HPF Urine RBC (Auto) NONE (0-2) /HPF U Epithel Cells (Auto) NONE (FEW) /HPF Urine Bacteria (Auto) NONE SEEN (NEGATIVE) /HPF Urine RBC NEGATIVE (0-5) Barrera/ul Ur Culture Indicated? NO Urine Glucose NEGATIVE (NEGATIVE) mg/dL Influenza Type A Ag (NEGATIVE) Influenza Type B Ag (NEGATIVE) RSV (PCR) (Negative) SARS-CoV-2 (PCR) (NEGATIVE) 02/27/22 02/27/22 02/27/22 Range/Units 12:55 13:06 15:31 WBC (4.0-10.5) x10^3/uL RBC (4.1-5.6) x10^6/uL Hgb (12.5-18.0) g/dL Hct (42-50) % MCV (78-100) fL MCH (26-32) pg MCHC (32-36) g/dL RDW (11.5-14.0) % Plt Count (150-450) x10^3/uL MPV (7.5-11.0) fL Gran % (36.0-66.0) % Immature Gran % (Auto) (0.00-0.4) % Nucleat RBC Rel Count (0.00-0.1) % Eos # (Auto) (0-0.5) x10^3/uL Immature Gran # (Auto) (0.00-0.03) x10^3u/L Absolute Lymphs (auto) (1.0-4.6) x10^3/uL Absolute Monos (auto) (0.0-1.3) x10^3/uL Absolute Nucleated RBC (0.00-0.01) x10^3u/L Lymphocytes % (24.0-44.0) % Monocytes % (0.0-12.0) % Eosinophils % (0.00-5.0) % Basophils % (0.0-0.4) % Absolute Granulocytes (1.4-6.9) x10^3/uL Basophils # (0-0.4) x10^3/uL PT 11.9 (9.4-12.5) SECONDS INR 1.14 (0.8-3.0) Sodium (137-145) mmol/L Potassium (3.5-5.1) mmol/L Chloride (98-107) mmol/L Carbon Dioxide (22-30) mmol/L Anion Gap (5-15) MEQ/L BUN (9-20) mg/dL Creatinine (0.66-1.25) mg/dL Estimated GFR ML/MIN Glucose (74-106) mg/dL Hemoglobin A1c 5.25 (4.5-6.0) % Calcium (8.4-10.2) mg/dL Total Bilirubin (0.2-1.3) mg/dL AST (17-59) U/L ALT (0-50) U/L Alkaline Phosphatase (38-126) U/L Serum Total Protein (6.3-8.2) g/dL Albumin (3.5-5.0) g/dL Triglycerides (30-150) mg/dL Cholesterol (50-200) mg/dL LDL Cholesterol (30-100) mg/dL HDL Cholesterol (40-60) mg/dL Heart Disease Risk Ratio Urinalys Dipstick Clnc Urine Color (YELLOW) Urine Appearance (CLEAR) Urine pH (5-6) Ur Specific [place] (1.005-1.025) POC Urine Protein Conf (Negative) Urine Ketones (NEGATIVE) Urine Nitrite (NEGATIVE) Urine Bilirubin (NEGATIVE) Urine Urobilinogen (0-1) mg/dL Urine Leukocytes (NEGATIVE) Urine WBC (Auto) (0-5) /HPF Urine RBC (Auto) (0-2) /HPF U Epithel Cells (Auto) (FEW) /HPF Urine Bacteria (Auto) (NEGATIVE) /HPF Urine RBC (0-5) Barrera/ul Ur Culture Indicated? Urine Glucose (NEGATIVE) mg/dL Influenza Type A Ag NEGATIVE (NEGATIVE) Influenza Type B Ag NEGATIVE (NEGATIVE) RSV (PCR) NEGATIVE (Negative) SARS-CoV-2 (PCR) NEGATIVE (NEGATIVE) 02/28/22 02/28/22 02/28/22 Range/Units 04:50 04:50 04:50 WBC 8.7 (4.0-10.5) x10^3/uL RBC 4.84 (4.1-5.6) x10^6/uL Hgb 14.5 (12.5-18.0) g/dL Hct 43.0 (42-50) % MCV 88.8 (78-100) fL MCH 30.0 (26-32) pg MCHC 33.7 (32-36) g/dL RDW 12.8 (11.5-14.0) % Plt Count 257 (150-450) x10^3/uL MPV 10.1 (7.5-11.0) fL Gran % 60.3 (36.0-66.0) % Immature Gran % (Auto) 0.5 H (0.00-0.4) % Nucleat RBC Rel Count 0.0 (0.00-0.1) % Eos # (Auto) 0.34 (0-0.5) x10^3/uL Immature Gran # (Auto) 0.04 H (0.00-0.03) x10^3u/L Absolute Lymphs (auto) 2.16 (1.0-4.6) x10^3/uL Absolute Monos (auto) 0.81 (0.0-1.3) x10^3/uL Absolute Nucleated RBC 0.00 (0.00-0.01) x10^3u/L Lymphocytes % 24.9 (24.0-44.0) % Monocytes % 9.4 (0.0-12.0) % Eosinophils % 3.9 (0.00-5.0) % Basophils % 1.0 (0.0-0.4) % Absolute Granulocytes 5.22 (1.4-6.9) x10^3/uL Basophils # 0.09 (0-0.4) x10^3/uL PT (9.4-12.5) SECONDS INR (0.8-3.0) Sodium 134 L (137-145) mmol/L Potassium 3.4 L (3.5-5.1) mmol/L Chloride 100 (98-107) mmol/L Carbon Dioxide 27 (22-30) mmol/L Anion Gap 10.2 (5-15) MEQ/L BUN 19 (9-20) mg/dL Creatinine 0.84 (0.66-1.25) mg/dL Estimated GFR > 60.0 ML/MIN Glucose 94 (74-106) mg/dL Hemoglobin A1c (4.5-6.0) % Calcium 8.4 (8.4-10.2) mg/dL Total Bilirubin 0.50 (0.2-1.3) mg/dL AST 26 (17-59) U/L ALT 18 (0-50) U/L Alkaline Phosphatase 129 H (38-126) U/L Serum Total Protein 7.2 (6.3-8.2) g/dL Albumin 3.8 (3.5-5.0) g/dL Triglycerides 121 (30-150) mg/dL Cholesterol 118 (50-200) mg/dL LDL Cholesterol 67 (30-100) mg/dL HDL Cholesterol 34 L (40-60) mg/dL Heart Disease Risk Ratio 3.5 Urinalys Dipstick Clnc Urine Color (YELLOW) Urine Appearance (CLEAR) Urine pH (5-6) Ur Specific [place] (1.005-1.025) POC Urine Protein Conf (Negative) Urine Ketones (NEGATIVE) Urine Nitrite (NEGATIVE) Urine Bilirubin (NEGATIVE) Urine Urobilinogen (0-1) mg/dL Urine Leukocytes (NEGATIVE) Urine WBC (Auto) (0-5) /HPF Urine RBC (Auto) (0-2) /HPF U Epithel Cells (Auto) (FEW) /HPF Urine Bacteria (Auto) (NEGATIVE) /HPF Urine RBC (0-5) Barrera/ul Ur Culture Indicated? Urine Glucose (NEGATIVE) mg/dL Influenza Type A Ag (NEGATIVE) Influenza Type B Ag (NEGATIVE) RSV (PCR) (Negative) SARS-CoV-2 (PCR) (NEGATIVE) Accuchecks Date 02/27/22 Time 12:43 - Radiology Impressions Radiology Exams & Impressions: Radiology Procedures Category Date Time Status CT ANGIOGRAPHY NECK [CT] Stat Exams 02/27/22 16:41 Taken CTA HEAD W AND/OR WO CONTRAST [CT] Stat Exams 02/27/22 16:33 Taken HEAD WITHOUT CONTRAST [CT] Stat Exams 02/27/22 13:11 Completed MRI BRAIN W & W/O CONTRAST [MRI] Stat Exams 02/28/22 08:00 Ordered Assessment/Plan (1) CVA (cerebral vascular accident) Current Visit: Yes Status: Acute Assessment & Plan: continue aspirin and brillinta for teleneuro recommendation, will complete brain MRI and CTA to evaluate circulation. consult speech, PT and OT. patient will likely need rehab stay due to signicant hemiparesis Code(s): I63.9 - CEREBRAL INFARCTION, UNSPECIFIED (2) Left hemiparesis Current Visit: Yes Status: Acute Code(s): G81.94 - HEMIPLEGIA, UNSPECIFIED AFFECTING LEFT NONDOMINANT SIDE (3) Essential (primary) hypertension Current Visit: Yes Status: Acute Code(s): I10 - ESSENTIAL (PRIMARY) HYPERTENSION
--- NOTE | 2022-02-28 08:37 | XRAY ---
Indication: Double vision and speech changes. Brainstem infarct. Two-dimensional CTA neck performed using 80 cc Isovue 370 contrast. Two-dimensional sagittal and coronal reformatted images obtained. Additional 3-dimensional reformatted images obtained using a separate workstation. Comparison: None Visualized aortic arch normal in course and caliber with anatomic variant for bovine arch. Right brachiocephalic, left common carotid, and left subclavian arteries are widely patent. Left and right common carotid, carotid bulb, internal carotid, and external carotid arteries are normal in CTA appearance. Vertebral arteries demonstrates dominant right vertebral artery slightly larger in caliber. No critical stenosis, obstruction, or AV malformation. Visualized soft tissues are negative for pathologic cervical/supraclavicular lymphadenopathy. Parotid and submandibular glands are bilaterally symmetric. Lung apices demonstrates mild subpleural cystic changes and mild bilateral dependent atelectasis. Osseous structures intact with mild multilevel degenerative changes throughout the spine. Impression: 1. Normal CTA neck with contrast exam. 2. Incidental multilevel degenerative spondylosis.
--- NOTE | 2022-02-28 08:41 | XRAY ---
Indication: Double vision and speech changes. Brainstem infarct. Two-dimensional CTA head performed using 80 cc Isovue 370 contrast. Two-dimensional sagittal and coronal reformatted images obtained. Additional 3-dimensional reformatted images obtained using a separate workstation. Comparison: None Distal internal carotid arteries are bilaterally symmetric with minimal arteriosclerotic calcifications involving the parasellar segments, right greater than left. No critical stenosis, obstruction, or AV malformation. Normal carotid terminus with normal branching A1 and M1 segments bilaterally. More distal anterior cerebral and middle cerebral arteries are normal in CTA appearance bilaterally. Posterior circulation demonstrates minimal calcifications distal right vertebral artery without critical stenosis/obstruction. Incidental anatomic variant for origin left posterior cerebral artery. Remaining left vertebral, basilar, left/right posterior cerebral, and left/right superior cerebellar arteries are normal in CTA appearance. Venous sinuses/drainage unremarkable. No abnormal enhancing intra or extra-axial mass. Impression: Minimal calcifications distal right vertebral artery without critical stenosis/obstruction. Remaining CTA brain with contrast exam is negative.
[2022-02-28] MEDS ORDERED: NON-FORMULARY ITEM (Gabapentin [Gabapentin] 600 MG Tablet) PO SCH (09:15)
[2022-02-28] MEDS ORDERED: NON-FORMULARY ITEM (Venlafaxine Hcl [Effexor Xr] 150 MG Cap.Er.24h) PO SCH (10:00)
--- NOTE | 2022-02-28 10:41 | XRAY ---
Indication: Acute mental status change. Brain stem infarct. Sagittal, coronal, and axial MRI brain performed using pre and post T1, T2, FLAIR, diffusion, and ADC sequences. 20 cc Dotarem contrast used. Comparison: None Age-appropriate global atrophy and mild periventricular degenerative micro-ischemia bilaterally. There are subcentimeter remote infarcts right basal ganglia/right periventricular white matter with negative mass effect on the right lateral/third ventricles. Additional 6 mm remote infarct right cerebellum. Diffusion images demonstrates small focus of restricted signal involving the lita/brainstem right of midline measuring at least 2.0 x 1.2 x 1.7 cm in greatest AP, transverse, and CC projections respectively favoring acute ischemia. No acute hemorrhage or mass effect. Fourth ventricle is midline without hydrocephalus. Following gadolinium, there is no abnormal enhancing intra or extra-axial mass. 7/8 cranial nerve complex bilaterally symmetric. Normal flow void signal within the major intracerebral circulation. Normal appearing carotid cervical junction and sella turcica. Complete opacification left maxillary sinus. Impression: 1. Small focus acute ischemia involving the lita/brainstem as detailed. No acute hemorrhage/mass effect. 2. Small remote infarcts right basal ganglia, right periventricular white matter, and right cerebellum. 3. Normal aging brain including atrophy and degenerative micro-ischemia. 4. Negative contrast exam. 5. Incidental left maxillary sinus disease.
[2022-02-28] MEDS: Ecotrin 325 MG PO SCH (11:54)
[2022-02-28] MEDS: BRILINTA PO SCH ×2 (11:54→22:01)
[2022-02-28] MEDS: Lotrel 5/10 MG PO SCH (11:56)
[2022-02-28] MEDS: Effexor XR 75 MG PO SCH (11:57)
--- NOTE | 2022-02-28 13:02 | XRAY ---
Indication: detention placement. Comparison: March 08, 2019 Portable chest remains hyperinflated and clear. Heart and mediastinal structures within normal limits. Bony thorax intact again with mild osteopenia and degenerative changes. Impression: Continued nonacute hyperinflated chest with chronic bony findings.
[2022-02-28] MEDS: NEURONTIN PO PRN (22:01)
[2022-03-01 04:55] LABS: Basophil (Absolute #) 0.07 x10^3/uL (0-0.4); Eosinophil % 3.8 % (0.00-5.0); Eosinophil (Absolute #) 0.37 x10^3/uL (0-0.5); Hematocrit 42.1 % (42-50); Lymphocyte (Absolute #) 1.96 x10^3/uL (1.0-4.6); Lymphocytes % 20.1 % (24.0-44.0); Mean Cell Volume 90.1 fL (78-100); Mean Corpuscular Hgb Concent. 33.3 g/dL (32-36); Mean Platelet Volume 10.3 fL (7.5-11.0); Monocyte (Absolute #) 0.74 x10^3/uL (0.0-1.3); Monocytes % 7.6 % (0.0-12.0); Neutrophil % 67.5 % (36.0-66.0); Platelet Count 262 x10^3/uL (150-450); Red Blood Count 4.67 x10^6/uL (4.1-5.6); Red Cell Distribution Width 12.7 % (11.5-14.0); White Blood Count 9.8 x10^3/uL (4.0-10.5)
[2022-03-01 05:20] LABS: ALBUMIN 3.6 g/dL (3.5-5.0); ALKALINE PHOSPHATASE 110 U/L (38-126); ANION GAP 8.7 MEQ/L (5-15); BLOOD UREA NITROGEN 15 mg/dL (9-20); CHLORIDE 101 mmol/L (98-107); Calcium 8.5 mg/dL (8.4-10.2); Carbon Dioxide 27 mmol/L (22-30); Creatinine 1 0.85 mg/dL (0.66-1.25); EST GLOMERULAR FILTRATION RATE > 60.0 ML/MIN; Glucose 175 mg/dL (74-106); Potassium 3.5 mmol/L (3.5-5.1); SGOT/AST 23 U/L (17-59); SGPT/ALT 18 U/L (0-50); SODIUM 133 mmol/L (137-145); Total Protein 6.7 g/dL (6.3-8.2)
--- NOTE | 2022-03-01 08:13 | PCM.NOTE ---
Date and Time: 03/01/22 08 Subjective Assessment: weakness in left arm and leg and slurred speech are unchanged, patient has no new complaints Objective Exam General Appearance: no apparent distress Neurologic Exam: alert, cooperative, motor deficits, sensory deficit, slurred speech Respiratory Exam: normal breath sounds, lungs clear, No respiratory distress Cardiovascular Exam: regular rate/rhythm, normal heart sounds Gastrointestinal/Abdomen Exam: soft, No tenderness, No mass Extremity Exam: normal inspection, normal range of motion OBJECTIVE DATA Vital Signs: Vital Signs - 24 hr Temp Pulse Resp BP Pulse Ox 03/01/22 07:51 97.7 F 61 17 163/85 96 03/01/22 04:00 97.5 F 68 16 173/87 98 02/28/22 23:41 98.2 F 90 20 165/77 94 L 02/28/22 19:41 97.5 F 88 19 147/68 98 02/28/22 16:00 97.7 F 88 16 128/73 96 02/28/22 11:11 97.5 F 60 17 179/86 96 Pain Assessment - Last Documented Pain Intensity 0 Intake and Output: Intake & Output 02/26/22 02/27/22 02/28/22 03/01/22 11:59 11:59 11:59 11:59 Intake Total 1194 840 Output Total 1000 600 Balance 194 240 Weight 96.9 kg 98 kg Lab Results: Lab Results-Last 24 Hours 03/01/22 03/01/22 Range/Units 04:30 04:30 WBC 9.8 (4.0-10.5) x10^3/uL RBC 4.67 (4.1-5.6) x10^6/uL Hgb 14.0 (12.5-18.0) g/dL Hct 42.1 (42-50) % MCV 90.1 (78-100) fL MCH 30.0 (26-32) pg MCHC 33.3 (32-36) g/dL RDW 12.7 (11.5-14.0) % Plt Count 262 (150-450) x10^3/uL MPV 10.3 (7.5-11.0) fL Gran % 67.5 H (36.0-66.0) % Immature Gran % (Auto) 0.3 (0.00-0.4) % Nucleat RBC Rel Count 0.0 (0.00-0.1) % Eos # (Auto) 0.37 (0-0.5) x10^3/uL Immature Gran # (Auto) 0.03 (0.00-0.03) x10^3u/L Absolute Lymphs (auto) 1.96 (1.0-4.6) x10^3/uL Absolute Monos (auto) 0.74 (0.0-1.3) x10^3/uL Absolute Nucleated RBC 0.00 (0.00-0.01) x10^3u/L Lymphocytes % 20.1 L (24.0-44.0) % Monocytes % 7.6 (0.0-12.0) % Eosinophils % 3.8 (0.00-5.0) % Basophils % 0.7 (0.0-0.4) % Absolute Granulocytes 6.60 (1.4-6.9) x10^3/uL Basophils # 0.07 (0-0.4) x10^3/uL Sodium 133 L (137-145) mmol/L Potassium 3.5 (3.5-5.1) mmol/L Chloride 101 (98-107) mmol/L Carbon Dioxide 27 (22-30) mmol/L Anion Gap 8.7 (5-15) MEQ/L BUN 15 (9-20) mg/dL Creatinine 0.85 (0.66-1.25) mg/dL Estimated GFR > 60.0 ML/MIN Glucose 175 H (74-106) mg/dL Calcium 8.5 (8.4-10.2) mg/dL Total Bilirubin 0.40 (0.2-1.3) mg/dL AST 23 (17-59) U/L ALT 18 (0-50) U/L Alkaline Phosphatase 110 (38-126) U/L Serum Total Protein 6.7 (6.3-8.2) g/dL Albumin 3.6 (3.5-5.0) g/dL Radiology Exams: Radiology Procedures Category Date Time Status CHEST 1 VIEW (PORTABLE) Urgent Exams 02/28/22 12:[address] ANGIOGRAPHY NECK [CT] Stat Exams 02/27/22 16:41 Completed CTA HEAD W AND/OR WO CONTRAST [CT] Stat Exams 02/27/22 16:33 Completed HEAD WITHOUT CONTRAST [CT] Stat Exams 02/27/22 13:11 Completed MRI BRAIN W & W/O CONTRAST [MRI] Stat Exams 02/28/22 08:00 Completed Multi-Disciplinary Progress Notes: Multi-Disciplinary Progress Notes 02/28/22 16:06 Case Management Note by Misty Juarez RECEIVED CALL FROM APS MARIA EUGENIA CRUZ [phone] THEY RECEIVED A REPORT FROM [facility] THAT THEY WERE CONCERNED THAT PATIENT'S ROOMMATES REFUSED TO [facility] FOR HELP WHEN PATIENT DEVELOPED SYMPTOMS. THEY WOULD LIKE UPDATED ON DC DISPOSITION. WHEN THIS REVERBERATORY FURNACE OPERATOR ASKED PATIENT ABOUT INCIDENT- PATIENT WAS POOR HISTORIAN AND COULD NOT RECALL EXACTLY WHAT HAPPENED. MARIA EUGENIA UPDATED THAT REFERRAL WAS SENT TO [facility]- SHE WOULD LIKE UPDATED AT TIME OF DC Initialized on 02/28/22 16:06 - END OF NOTE 02/28/22 12:30 (created 02/28/22 16:23) Case Management Note by Misty Juarez REFERRAL FAXED TO [facility] Initialized on 02/28/22 16:23 - END OF NOTE Assessment/Plan (1) CVA (cerebral vascular accident) Current Visit: Yes Status: Acute Assessment & Plan: brainstem cva noted on MRI, no critical stenosis on MRA. continue aspirin and brillinta at this time. needs ST/PT/OT, patient agreeable to rehab stay, referral to [facility] pending. Code(s): I63.9 - CEREBRAL INFARCTION, UNSPECIFIED (2) Left hemiparesis Current Visit: Yes Status: Acute Code(s): G81.94 - HEMIPLEGIA, UNSPECIFIED AFFECTING LEFT NONDOMINANT SIDE (3) Essential (primary) hypertension Current Visit: Yes Status: Acute Assessment & Plan: bp is slightly elevated but will not treat at this time due to acute/subacute CVA Code(s): I10 - ESSENTIAL (PRIMARY) HYPERTENSION
[2022-03-01] MEDS: Effexor XR 75 MG PO SCH (10:06)
[2022-03-01] MEDS: Lotrel 5/10 MG PO SCH (10:06)
[2022-03-01] MEDS: BRILINTA PO SCH ×2 (10:07→21:51)
[2022-03-01] MEDS: Ecotrin 325 MG PO SCH (10:07)
[2022-03-01] MEDS: Nicoderm CQ 21 MG TOP SCH (13:16)
[2022-03-02] MEDS: Effexor XR 75 MG PO SCH (09:23)
[2022-03-02] MEDS: Lotrel 5/10 MG PO SCH (09:23)
[2022-03-02] MEDS: BRILINTA PO SCH ×2 (09:23→22:05)
[2022-03-02] MEDS: Ecotrin 325 MG PO SCH (09:23)
[2022-03-02] MEDS: Nicoderm CQ 21 MG TOP SCH (09:24)
--- NOTE | 2022-03-02 13:46 | PCM.NOTE ---
Date and Time: 03/02/22 1341 Subjective Assessment: Patient was started on Brilinta in place of Plavix for new stroke . Patient still has slurred speech is getting strength back in LLE,can lift his left arm but left hand is flaccid. B/P down from 160s/90s to 130s/70s. Appetite is good and is eating lunch without cough or choke. Objective Exam General Appearance: no apparent distress Neurologic Exam: alert, 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, cooperative, normal mood/affect, slurred speech, other (left hand flaccid) Skin Exam: normal color, warm, dry Respiratory Exam: normal breath sounds Cardiovascular Exam: regular rate/rhythm Gastrointestinal/Abdomen Exam: soft, No tenderness Extremity Exam: paralysis (flaccid left hand,LLE 4/5 strength) OBJECTIVE DATA Vital Signs: Vital Signs - 24 hr Temp Pulse Resp BP Pulse Ox 03/02/22 11:55 98.6 F 70 18 159/77 97 03/02/22 06:56 97.8 F 62 18 133/74 96 03/02/22 04:00 98.0 F 71 20 138/96 95 03/01/22 23:29 98.2 F 67 18 116/51 96 03/01/22 20:00 97.8 F 73 20 169/79 96 03/01/22 16:00 98.7 F 63 18 165/94 96 Pain Assessment - Last Documented Pain Intensity 0 Intake and Output: Intake & Output 02/28/22 03/01/22 03/02/22 03/03/22 11:59 11:59 11:59 11:59 Intake Total 1194 1240 3057 300 Output Total 1000 600 400 Balance 266 470 6007 300 Weight 96.9 kg 98 kg 99 kg Multi-Disciplinary Progress Notes: Multi-Disciplinary Progress Notes 03/01/22 16:46 Physical Therapy Note by Mike(Efra#[id number]),Grisel PT. WAS SEEN BY P.T. THIS PM. REPORTS MILD C/O LBP. PT. EXPRESSED ANXIETY ABOUT DECREASED USE OF L UE AND L FOOT SINCE CVA. IN BEDSIDE CHAIR AND HAD JUST FINISHED HIS LUNCH. PT. AGREEABLE TO P.T. PERFORMED SIT TO STAND W/ MOD ASSIST X 2; NEEDS MIN ASSIST TO SCOOT TO EDGE OF CHAIR AND V.C TO INCREASE TRUNK FLEXION AND PUSH UP W/ R UE. L LE TENDS TO ADDUCT AND FOOT MOVES INTO SUPINATION W/ DIFFICULTY WB ON THAT FOOT. TONE DOES NOT DECREASE IN FOOT W/ WB. WORKED ON LATERAL WEIGHT SHIFT W/ GARDENIA-WALKER IN L HAND W/ MOD ASSIST X 2. PT. ANXIOUS ABOUT FALLING DESPITE BEING WELL-SUPPORTED. PERFORMED SEATED LAQS, MARCHES R LE AND ABLE TO PERFORM THROUGH ~1/2 ROM L LE. PT. THEN PERFORMED STAND PIVOT TRANSFER W/ MOD ASSIST X 2 CHAIR TO BED. NOTED PT. WAS IC OF URINE AND THEN PERFORMED SIT TO STAND X 2 TO CHANGE DEPEND. PERFORMED SIT TO SUPINE W/ MOD ASSIST X 1. PT. REPORTED FATIGUE AFTER RX. WILL CONT. PT 5X/WK UNTIL D/C TO PREP FOR SNF STAY. CURRENTLY AWAITING INS PA FOR SNF. Initialized on 03/01/22 16:46 - END OF NOTE Assessment/Plan (1) CVA (cerebral vascular accident) Current Visit: Yes Status: Acute Assessment & Plan: started Brilinta in place of Plavix,has improved still slurred speech and left hand flaccid paralysis,will need PT/OT and speech therapy Code(s): I63.9 - CEREBRAL INFARCTION, UNSPECIFIED (2) Essential (primary) hypertension Current Visit: Yes Status: Chronic Assessment & Plan: improved control today Code(s): I10 - ESSENTIAL (PRIMARY) HYPERTENSION
[2022-03-03] MEDS: Ecotrin 325 MG PO SCH (08:18)
[2022-03-03] MEDS: Effexor XR 75 MG PO SCH (08:18)
[2022-03-03] MEDS: Lotrel 5/10 MG PO SCH (08:18)
[2022-03-03] MEDS: BRILINTA PO SCH ×2 (08:19→22:13)
[2022-03-03] MEDS: Nicoderm CQ 21 MG TOP SCH (08:19)
--- NOTE | 2022-03-03 18:37 | PCM.NOTE ---
Date and Time: 03/03/221831 Subjective Assessment: Patient states left leg feels some stronger and left arm better but hand /fingers still not able to move. Sees double if both eyes open.Will be going to Rehab at [facility]. No new c/o. Objective Exam General Appearance: no apparent distress Neurologic Exam: alert, 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, normal mood/affect, other (speech is clearer today) Respiratory Exam: normal breath sounds Cardiovascular Exam: regular rate/rhythm OBJECTIVE DATA Vital Signs: Vital Signs - 24 hr Temp Pulse Resp BP Pulse Ox 03/03/22 15:33 98 F 81 20 161/78 95 03/03/22 11:22 98 F 78 18 142/74 94 L 03/03/22 08:32 97.5 F 70 20 157/96 95 03/03/22 04:00 98.2 F 76 20 174/86 96 03/02/22 23:39 98.2 F 75 20 149/87 97 03/02/22 21:00 86 20 169/94 03/02/22 20:00 98.4 F 72 20 148/82 96 Pain Assessment - Last Documented Pain Intensity 0 Intake and Output: Intake & Output 03/01/22 03/02/22 03/03/22 03/04/22 11:59 11:59 11:59 11:59 Intake Total 1240 3057 3240 1680 Output Total 600 400 725 250 Balance 640 2657 2515 1430 Weight 98 kg 99 kg 98 kg Assessment/Plan (1) CVA (cerebral vascular accident) Current Visit: Yes Status: Acute Code(s): I63.9 - CEREBRAL INFARCTION, UNSPECIFIED (2) Essential (primary) hypertension Current Visit: Yes Status: Chronic Code(s): I10 - ESSENTIAL (PRIMARY) HYPERTENSION (3) Diplopia Current Visit: Yes Status: Acute Code(s): H53.2 - DIPLOPIA (4) Left hemiparesis Current Visit: Yes Status: Acute Assessment & Plan: rehab [facility] Code(s): G81.94 - HEMIPLEGIA, UNSPECIFIED AFFECTING LEFT NONDOMINANT SIDE
[2022-03-03] MEDS ORDERED: Tums EX 750 MG PO PRN (19:03)
[2022-03-04] MEDS: Ecotrin 325 MG PO SCH (10:10)
[2022-03-04] MEDS: Lotrel 5/10 MG PO SCH (10:10)
[2022-03-04] MEDS: BRILINTA PO SCH ×2 (10:11→21:36)
[2022-03-04] MEDS: Nicoderm CQ 21 MG TOP SCH (10:11)
[2022-03-04] MEDS: Effexor XR 75 MG PO SCH (10:11)
[2022-03-04] MEDS: NEURONTIN PO PRN (21:35)
[2022-03-05] MEDS: Ecotrin 325 MG PO SCH (11:03)
[2022-03-05] MEDS: Effexor XR 75 MG PO SCH (11:03)
[2022-03-05] MEDS: Lotrel 5/10 MG PO SCH (11:03)
[2022-03-05] MEDS: BRILINTA PO SCH (11:04)
[2022-03-05] MEDS: Nicoderm CQ 21 MG TOP SCH (11:07)
[2022-03-05 11:52] VITALS: BP 141/82; PULSE 67; O2SAT 96
== END 2022-03-05 13:34 ==
LOC: ED 12:20 → MED SURG 16:32
PROVIDERS: ADMIT Family Medicine; ATTEND Family Medicine
DX: I63.9 Cerebral infarction, unspecified (principal); G81.94 Hemiplegia, unspecified affecting left nondominant side; I10 Essential (primary) hypertension; H53.2 Diplopia; I25.2 Old myocardial infarction; Z79.01 Long term (current) use of anticoagulants; Z79.899 Other long term (current) drug therapy; Z20.828 Contact with and (suspected) exposure to other viral communicable diseases
CPT/HCPCS: 0241U; 36000; 36415; 70450; 70496; 70498; 70553; 71045; 80053; 80061; 81015; 83036; 83721; 85025; 85610; 87040; 92610; 93005; 93041; 93268; 94760; 97110; 97112; 97161; 97166; 97530; 99285; G0008; G0378; 90686; A9270-GY

== ENCOUNTER 2022-03-18 19:32 | Observation (INO) | payer MEDICARE ==
--- NOTE | 2022-03-18 20:28 | ERPHSYRPT ---
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 Pt is alert and 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. Skin is pink, warm, and dry. Speech is slightly slurred. Pt respirations are easy and unlabored at the time. Pt complaints of frontal head pain and dizziness. FSBS 104 upon arrival. Pt has some previous stroke deficets including left sided weakness of arm and leg. Timing/Duration: today Severity: moderate Modifying Factors: Improves With: nothing Associated Symptoms: headaches Allergies/Adverse Reactions: No Known Drug Allergies Allergy (Verified 03/18/22 19:59) Home Medications: AMITRIPTYLINE HCL 50 mg Tab [AMITRIPTYLINE HCL 50 mg Tablet] 50 mg PO DAILY 02/27/22 [History] Amlodipine Besylate/Benazepril [Amlodipine-Benazepril 5-10 mg] 1 tablet PO DAILY 02/27/22 [History] Cetirizine HCl 10 mg PO DAILY 02/27/22 [History] Gabapentin 900 mg PO TID PRN 02/27/22 [History] Venlafaxine HCl [Effexor Xr] 150 mg PO DAILY 02/27/22 [History] Hx Tetanus, Diphtheria Vaccination/Date Given: No Hx Influenza Vaccination/Date Given: No Hx Pneumococcal Vaccination/Date Given: Yes Immunizations Up to Date: No Travel Risk - International Travel Have you traveled outside of the country in past 3 weeks: No - Coronavirus Screening Are you exhibiting any of the following symptoms?: No - Vaccine Status Have you recieved a Covid-19 vaccination: Yes 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: [employer] - Vaccination Dates Dates if Unknown: unknown - Review of Systems Constitutional: No Symptoms, No Fever, No Chills Eyes: No Symptoms Ears, Nose, & Throat: No Symptoms Respiratory: No Symptoms, No Cough, No Dyspnea Cardiac: No Symptoms, No Chest Pain, No Edema, No Syncope Abdominal/Gastrointestinal: No Symptoms, No Abdominal Pain, No Nausea, No Vomiting, No Diarrhea Genitourinary Symptoms: No Symptoms, No Dysuria Musculoskeletal: No Symptoms, No Back Pain, No Neck Pain Skin: No Symptoms, No Rash Neurological: No Symptoms, No Dizziness, No Focal Weakness, No Sensory Changes Psychological: No Symptoms Endocrine: No Symptoms Hematologic/Lymphatic: No Symptoms Immunological/Allergic: No Symptoms All Other Systems: Reviewed and Negative - Past Medical History Pertinent Past Medical History: Yes Neurological History: Stroke, TIA, Other ENT History: No Pertinent History Cardiac History: Hypertension, Myocardial Infarction (VT) Respiratory History: No Pertinent History Endocrine Medical History: No Pertinent History Musculoskeletal History: Arthritis GI Medical History: No Pertinent History History: No Pertinent History Psycho-Social History: Depression Male Reproductive Disorders: No Pertinent History - Past Surgical History Past Surgical History: Yes Neuro Surgical History: No Pertinent History Cardiac: No Pertinent History Respiratory: No Pertinent History Gastrointestinal: Cholecystectomy Genitourinary: No Pertinent History Musculoskeletal: Joint Replacement Male Surgical History: No Pertinent History Other Surgical History: Left total knee replacement - Social History Smoking Status: Current every day smoker How long have you smoked: years Exposure to second hand smoke: No Drug Use: none Patient Lives Alone: No - Nursing Vital Signs Nursing Vital Signs: Initial Vital Signs Temperature 98.3 F 03/18/22 19:53 Pulse Rate 93 H 03/18/22 19:53 Respiratory Rate 22 03/18/22 19:53 Blood Pressure 145/107 03/18/22 19:53 O2 Sat by Pulse Oximetry 95 03/18/22 19:53 Pain Scale Pain Intensity 0 - Physical Exam General Appearance: no apparent distress, alert Eye Exam: PERRL/EOMI, eyes nml inspection Ears, Nose, Throat Exam: normal ENT inspection, TMs normal, pharynx normal, moist mucous membranes Neck Exam: normal inspection, non-tender, supple, full range of motion Respiratory Exam: normal breath sounds, lungs clear, No respiratory distress Cardiovascular Exam: regular rate/rhythm, normal heart sounds, normal peripheral pulses Gastrointestinal/Abdomen Exam: soft, normal bowel sounds, No tenderness, No mass Back Exam: normal inspection, normal range of motion, No CVA tenderness, No vertebral tenderness Extremity Exam: normal inspection, normal range of motion, pelvis stable Neurologic Exam: alert, 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, cooperative, normal mood/affect, nml cerebellar function, nml station & gait, sensation nml, No motor deficits Skin Exam: normal color, warm, dry, No rash Lymphatic Exam: No adenopathy SpO2: 95 - Course Nursing assessment & vital signs reviewed: Yes EKG Interpreted by Me: RATE (91), Sinus Rhythm, NORMAL AXIS, NORMAL INTERVALS - CT Exams Head CT Interpretation: Tele-radiologist Report (No change compared to 02/27/2022. Again nonacute senile brain with remote infarct right basal ganglia. Brain stem acute ischemia seen on MRI 02/28/2022 not appreciated) Other CT Interpretation: Tele-radiologist Report (Telemetry neurologist requested a CT venogram. CT venogram shows severe left maxillary sinus disease no obvious venous sinus thrombosis no large occlusion. Satnam cisterna magna which is a normal variant.) Ordered Tests: Active Orders 24 hr Category Date Time Status Juvenile Justice Specialist STAT Care 03/18/22 20:29 Active EKG-ER Only STAT Care 03/18/22 20:28 Active IV Insertion STAT Care 03/18/22 20:28 Active Pulse Oximetry (ED) STAT Care 03/18/22 20:28 Active HEAD WITHOUT CONTRAST [CT] Stat Exams 03/18/22 19:36 Taken CBC W DIFF Stat Lab 03/18/22 20:35 Completed CMP Stat Lab 03/18/22 20:35 Completed TROPONIN Q4H Lab 03/18/22 20:35 Completed TROPONIN Q4H Lab 03/19/22 01:10 Completed TROPONIN Q4H Lab 03/19/22 04:30 Ordered Medication Summary Generic Name Dose Route Start Last Admin Trade Name Freq PRN Reason Stop Dose Admin Sodium Chloride 1,000 mls @ 75 mls/hr 03/18/22 20:45 03/18/22 20:43 Sodium Chloride 0.9% 1000 Ml IV 04/17/22 20:44 75 mls/hr .[id number] VERONIKA Administration Lab/Rad Data: Laboratory Result Diagrams 03/18/22 20:35 03/18/22 20:35 Laboratory Results 03/19/22 03/18/22 03/18/22 Range/Units 01:10 20:35 20:35 WBC (4.0-10.5) x10^3/uL RBC (4.1-5.6) x10^6/uL Hgb (12.5-18.0) g/dL Hct (42-50) % MCV (78-100) fL MCH (26-32) pg MCHC (32-36) g/dL RDW (11.5-14.0) % Plt Count (150-450) x10^3/uL MPV (7.5-11.0) fL Gran % (36.0-66.0) % Immature Gran % (Auto) (0.00-0.4) % Nucleat RBC Rel Count (0.00-0.1) % Eos # (Auto) (0-0.5) x10^3/uL Immature Gran # (Auto) (0.00-0.03) x10^3u/L Absolute Lymphs (auto) (1.0-4.6) x10^3/uL Absolute Monos (auto) (0.0-1.3) x10^3/uL Absolute Nucleated RBC (0.00-0.01) x10^3u/L Lymphocytes % (24.0-44.0) % Monocytes % (0.0-12.0) % Eosinophils % (0.00-5.0) % Basophils % (0.0-0.4) % Absolute Granulocytes (1.4-6.9) x10^3/uL Basophils # (0-0.4) x10^3/uL Sodium 136 L (137-145) mmol/L Potassium 4.0 (3.5-5.1) mmol/L Chloride 103 (98-107) mmol/L Carbon Dioxide 28 (22-30) mmol/L Anion Gap 9.6 (5-15) MEQ/L BUN 18 (9-20) mg/dL Creatinine 0.89 (0.66-1.25) mg/dL Estimated GFR > 60.0 ML/MIN Glucose 113 H (74-106) mg/dL Calcium 9.2 (8.4-10.2) mg/dL Total Bilirubin 0.30 (0.2-1.3) mg/dL AST 21 (17-59) U/L ALT 24 (0-50) U/L Alkaline Phosphatase 113 (38-126) U/L Troponin I < 0.012 < 0.012 (0.000-0.034) ng/mL Serum Total Protein 6.7 (6.3-8.2) g/dL Albumin 3.7 (3.5-5.0) g/dL 12/05/22 Range/Units 20:35 WBC 10.3 (4.0-10.5) x10^3/uL RBC 4.49 (4.1-5.6) x10^6/uL Hgb 13.4 (12.5-18.0) g/dL Hct 41.1 L (42-50) % MCV 91.5 (78-100) fL MCH 29.8 (26-32) pg MCHC 32.6 (32-36) g/dL RDW 13.1 (11.5-14.0) % Plt Count 271 (150-450) x10^3/uL MPV 10.2 (7.5-11.0) fL Gran % 58.7 (36.0-66.0) % Immature Gran % (Auto) 0.5 H (0.00-0.4) % Nucleat RBC Rel Count 0.0 (0.00-0.1) % Eos # (Auto) 0.51 H (0-0.5) x10^3/uL Immature Gran # (Auto) 0.05 H (0.00-0.03) x10^3u/L Absolute Lymphs (auto) 2.68 (1.0-4.6) x10^3/uL Absolute Monos (auto) 0.92 (0.0-1.3) x10^3/uL Absolute Nucleated RBC 0.00 (0.00-0.01) x10^3u/L Lymphocytes % 26.0 (24.0-44.0) % Monocytes % 8.9 (0.0-12.0) % Eosinophils % 4.9 (0.00-5.0) % Basophils % 1.0 (0.0-0.4) % Absolute Granulocytes 6.06 (1.4-6.9) x10^3/uL Basophils # 0.10 (0-0.4) x10^3/uL Sodium (137-145) mmol/L Potassium (3.5-5.1) mmol/L Chloride (98-107) mmol/L Carbon Dioxide (22-30) mmol/L Anion Gap (5-15) MEQ/L BUN (9-20) mg/dL Creatinine (0.66-1.25) mg/dL Estimated GFR ML/MIN Glucose (74-106) mg/dL Calcium (8.4-10.2) mg/dL Total Bilirubin (0.2-1.3) mg/dL AST (17-59) U/L ALT (0-50) U/L Alkaline Phosphatase (38-126) U/L Troponin I (0.000-0.034) ng/mL Serum Total Protein (6.3-8.2) g/dL Albumin (3.5-5.0) g/dL - Progress Progress: improved Progress Note: Patient reassessed. Symptoms improving. No objective findings on physical exam. Patient had a telemetry neuro consultation. Telemetry neuro advised CT venogram. CT venogram shows sinus disease otherwise negative. Patient will be admitted for stroke work-up. We will order MRI for the morning. 03/19/22 01:53 Discussed with .: Carl Will see patient in: hospital (observation) Counseled pt/family regarding: lab results, diagnosis, need for follow-up, rad results - Departure Departure Disposition: Observation Clinical Impression: Severe left maxillary sinus disease, TIA (transient ischemic attack) Condition: Stable Critical Care Time: No Referrals: DELMI BOLAND MD [Primary Care Provider] - Follow up/PCP as directed
[2022-03-18] MEDS ORDERED: Sodium Chloride 0.9% 1000 ML 1,000 ML ONE (20:41)
[2022-03-18 20:42] LABS: Absolute Neutrophil Ct (ANC) 6.06 x10^3/uL (1.4-6.9); Eosinophil % 4.9 % (0.00-5.0); Eosinophil (Absolute #) 0.51 x10^3/uL (0-0.5); Hematocrit 41.1 % (42-50); Hemoglobin 13.4 g/dL (12.5-18.0); Lymphocyte (Absolute #) 2.68 x10^3/uL (1.0-4.6); Mean Cell Volume 91.5 fL (78-100); Mean Corpuscular Hemoglobin 29.8 pg (26-32); Mean Corpuscular Hgb Concent. 32.6 g/dL (32-36); Mean Platelet Volume 10.2 fL (7.5-11.0); Monocyte (Absolute #) 0.92 x10^3/uL (0.0-1.3); Monocytes % 8.9 % (0.0-12.0); Neutrophil % 58.7 % (36.0-66.0); Platelet Count 271 x10^3/uL (150-450); Red Blood Count 4.49 x10^6/uL (4.1-5.6); Red Cell Distribution Width 13.1 % (11.5-14.0); White Blood Count 10.3 x10^3/uL (4.0-10.5)
[2022-03-18] MEDS ORDERED: Sodium Chloride 0.9% 1000 ML 1,000 ML IV SCH (20:45)
[2022-03-18 20:53] LABS: ALBUMIN 3.7 g/dL (3.5-5.0); ALKALINE PHOSPHATASE 113 U/L (38-126); ANION GAP 9.6 MEQ/L (5-15); BLOOD UREA NITROGEN 18 mg/dL (9-20); CHLORIDE 103 mmol/L (98-107); Calcium 9.2 mg/dL (8.4-10.2); Carbon Dioxide 28 mmol/L (22-30); Creatinine 1 0.89 mg/dL (0.66-1.25); EST GLOMERULAR FILTRATION RATE > 60.0 ML/MIN; Glucose 113 mg/dL (74-106); SGOT/AST 21 U/L (17-59); SGPT/ALT 24 U/L (0-50); SODIUM 136 mmol/L (137-145); Total Protein 6.7 g/dL (6.3-8.2)
[2022-03-19] MEDS ORDERED: BABY ASPIRIN 81 MG CHEW PO ONE (01:54)
[2022-03-19] MEDS ORDERED: Sodium Chloride 0.9% 1000 ML 1,000 ML IV SCH (02:00)
[2022-03-19 02:09] LABS: INFLUENZA A NEGATIVE (NEGATIVE); INFLUENZA B NEGATIVE (NEGATIVE); RESPIRATORY SYNCTIAL VIRUS NEGATIVE (Negative); SARS-CoV-2 Xpert Express NEGATIVE (NEGATIVE)
[2022-03-19] MEDS ORDERED: Sodium Chloride 0.9% 500 ML 500 ML IV SCH (02:31)
[2022-03-19] MEDS ORDERED: MILK OF MAGNESIA 30 ML PO PRN (02:31)
[2022-03-19] MEDS ORDERED: Zofran 4 MG/2 ML VIAL IV PRN (02:31)
[2022-03-19] MEDS ORDERED: TYLENOL 325 MG PO PRN (02:31)
[2022-03-19] MEDS ORDERED: MAALOX ES 30 ML UNIT DOSE PO PRN (02:31)
[2022-03-19] MEDS ORDERED: Senokot-S Tablet PO PRN (02:31)
[2022-03-19 05:30] LABS: Cholesterol 92 mg/dL (50-200); HDL CHOLESTEROL 41 mg/dL (40-60); LDL, DIRECT < 36 mg/dL (30-100); Risk Ratio 2.2; TRIGLYCERIDE 85 mg/dL (30-150)
[2022-03-19] MEDS: Sodium Chloride 0.9% 1000 ML 1,000 ML IV SCH (07:24)
--- NOTE | 2022-03-19 08:32 | XRAY ---
Indication: Left-sided weakness. Slurred speech. Stroke. Multiple contiguous axial images obtained through the head without contrast. Comparison: February 27, 2022 Again age-appropriate global atrophy, mild periventricular degenerative micro-ischemia, and multifocal small remote infarcts right basal ganglia. Brainstem ischemia seen on recent MRI not appreciated. No acute intracranial hemorrhage, abnormal extra-axial fluid collection, or mass effect. Fourth ventricle is midline without hydrocephalus. Bony calvarium intact. Again opacification visualized left maxillary sinus and right mastoid air cells again presumed inflammatory. Impression: Continued nonacute senile brain again with multifocal remote infarcts right basal ganglia.
--- NOTE | 2022-03-19 08:36 | XRAY ---
Indication: Slurred speech, headache, and body weakness. Venous sinus thrombosis. Multiple contiguous axial images obtained through the head using 80 cc Isovue 370 contrast. Comparison: Noncontrast exam taken earlier in the day. No abnormal enhancing intra-or extra-axial mass. Venous sinuses/drainage are negative for thrombosis. Remaining CT head unchanged again with age-appropriate global atrophy, periventricular degenerative micro-ischemia, and small remote infarcts right basal ganglia. Impression: Negative CT head with contrast exam. Comment: Preliminary interpretation made by [facility]. No critical discrepancy.
[2022-03-19] MEDS ORDERED: NON-FORMULARY ITEM (Gabapentin [Gabapentin] 600 MG Tablet) PO PRN (14:20)
[2022-03-19] MEDS ORDERED: ANTIVERT 25 MG PO PRN (14:20)
[2022-03-19] MEDS ORDERED: NEURONTIN PO PRN (14:27)
--- NOTE | 2022-03-19 15:00 | XRAY ---
Indication: Headache. Multiple strokes. New stroke. Negative CT head with and without contrast exams performed earlier in the day. Multislide 3-D [id number] MRA [place] was performed. Comparison: None Distal internal carotid arteries are normal in course and caliber without critical stenosis or obstruction. Normal carotid terminus with normal branching A1 and M1 segments bilaterally. Incidental anatomic variant for origin left posterior cerebral artery. Posterior circulation demonstrates normal MRA appearance to the basilar right posterior cerebral, and left/right superior cerebellar arteries. Impression: Continued negative MRA [place] when compared to recent CTA February 27, 2022.
--- NOTE | 2022-03-19 15:18 | XRAY ---
Indication: Headache. Multiple strokes. New stroke. Negative CT head with and without contrast as exams from earlier in the day. Sagittal, coronal, and axial MRI brain performed without contrast using T1, T2, FLAIR, diffusion, and ADC sequences. Comparison: February 28, 2022 Again age-appropriate global atrophy, mild periventricular degenerative micro-ischemia bilaterally, and small remote infarcts right basal ganglia/right periventricular white matter/right cerebellum. Stable negative mass effect on the right lateral and third ventricles. Diffusion images demonstrates resolving right brainstem/lita restricted signal. No new focus of restrictive signal. No acute intracranial hemorrhage, abnormal extra-axial fluid question, or mass effect. Fourth ventricle is midline without hydrocephalus. 7/8 cranial nerve complex bilaterally symmetric. Normal flow-void signal within the major intracerebral circulation. Normal appearing craniocervical junction and sella turcica. There remains complete opacification of the left maxillary sinus and fluid signal in both mastoid air cells. Impression: 1. Improving ischemia right brainstem/lita. No new focus of acute ischemia or acute intracranial abnormalities. 2. Again atrophy, degenerative micro-ischemia, and small multifocal remote infarcts. 3. Again opacification left maxillary sinus and fluid signal in both mastoid air cells presumed inflammatory.
[2022-03-19] MEDS: NORVASC 5 MG PO SCH (15:30)
[2022-03-19] MEDS: Effexor XR 75 MG PO SCH (15:30)
[2022-03-19] MEDS: Nicoderm CQ 21 MG TOP SCH (15:30)
[2022-03-19] MEDS: Lotensin PO SCH (15:30)
[2022-03-19] MEDS: CLARITIN 10 MG PO SCH (15:30)
[2022-03-19] MEDS: ECOTRIN 81 MG PO SCH (15:30)
[2022-03-19] MEDS: BRILINTA PO SCH ×2 (15:30→21:48)
--- NOTE | 2022-03-19 16:25 | XRAY ---
Indication: Headache. Multiple strokes. New stroke. Negative CT head with and without contrast exams performed earlier in the day. Multi-slab 3-D [id number] MRA neck performed. Comparison: CTA neck February 27, 2022 Distal common carotid, carotid bulb, proximal internal carotid, and proximal external carotid arteries are normal in MRA appearance bilaterally. Visualized vertebral arteries are also normal in MRA appearance with the right slightly larger in caliber. Impression: Continued normal MRA neck.
[2022-03-19] MEDS ORDERED: MELATONIN PO SCH (22:00)
[2022-03-19] MEDS ORDERED: NON-FORMULARY ITEM (Melatonin [Melatonin] 5 MG Tablet) PO SCH (22:00)
[2022-03-19] MEDS ORDERED: ZOCOR 20MG PO SCH (22:00)
[2022-03-19] MEDS ORDERED: NON-FORMULARY ITEM (Atorvastatin Calcium [Atorvastatin Calcium] 20 MG Tablet) PO SCH (22:00)
[2022-03-20] MEDS: Sodium Chloride 0.9% 1000 ML 1,000 ML IV SCH (02:29)
[2022-03-20] MEDS: Lotensin PO SCH (09:18)
[2022-03-20] MEDS: CLARITIN 10 MG PO SCH (09:18)
[2022-03-20] MEDS: Effexor XR 75 MG PO SCH (09:18)
[2022-03-20] MEDS: ECOTRIN 81 MG PO SCH (09:18)
[2022-03-20] MEDS: NORVASC 5 MG PO SCH (09:18)
[2022-03-20] MEDS: BRILINTA PO SCH (09:19)
[2022-03-20] MEDS: Nicoderm CQ 21 MG TOP SCH (09:19)
[2022-03-20] MEDS ORDERED: NON-FORMULARY ITEM (Cetirizine Hcl [Cetirizine Hcl] 10 MG Tablet) PO SCH (10:00)
[2022-03-20] MEDS ORDERED: NON-FORMULARY ITEM (Venlafaxine Hcl [Venlafaxine Hcl Er] 150 MG Tab.Er.24) PO SCH (10:00)
[2022-03-20 13:55] VITALS: BP 163/81; PULSE 86; O2SAT 94
== END 2022-03-20 16:31 ==
LOC: ED 19:32 → MED SURG 03-19 02:30
PROVIDERS: ADMIT Family Medicine; ATTEND Family Medicine
DX: R42 Dizziness and giddiness (principal); I10 Essential (primary) hypertension; E78.5 Hyperlipidemia, unspecified; I25.10 Atherosclerotic heart disease of native coronary artery without angina pectoris; Z79.899 Other long term (current) drug therapy; Z20.828 Contact with and (suspected) exposure to other viral communicable diseases; Z86.73 Personal history of transient ischemic attack (TIA), and cerebral infarction without residual deficits; Z72.0 Tobacco use
CPT/HCPCS: 0241U; 36000; 36415; 70450; 70460; 70544; 70548; 70551; 80053; 80061; 83721; 84484; 85025; 93005; 93041; 93268; 94760; 99285; G0378; Q3014; A9270-GY

== ENCOUNTER 2022-04-13 16:07 | Emergency (ER) | payer MEDICARE ==
[2022-04-13] MEDS ORDERED: TYLENOL 325 MG PO STA (16:32)
[2022-04-13] MEDS ORDERED: TYLENOL 325 MG ONE (16:36)
[2022-04-13 16:55] LABS: Absolute Neutrophil Ct (ANC) 6.44 x10^3/uL (1.4-6.9); Basophil (Absolute #) 0.09 x10^3/uL (0-0.4); Eosinophil % 2.9 % (0.00-5.0); Eosinophil (Absolute #) 0.29 x10^3/uL (0-0.5); Hematocrit 41.4 % (42-50); Hemoglobin 13.5 g/dL (12.5-18.0); Lymphocyte (Absolute #) 2.09 x10^3/uL (1.0-4.6); Lymphocytes % 21.2 % (24.0-44.0); Mean Cell Volume 92.6 fL (78-100); Mean Corpuscular Hemoglobin 30.2 pg (26-32); Mean Corpuscular Hgb Concent. 32.6 g/dL (32-36); Mean Platelet Volume 9.8 fL (7.5-11.0); Monocyte (Absolute #) 0.89 x10^3/uL (0.0-1.3); Neutrophil % 65.5 % (36.0-66.0); Platelet Count 265 x10^3/uL (150-450); Red Blood Count 4.47 x10^6/uL (4.1-5.6); Red Cell Distribution Width 13.8 % (11.5-14.0); White Blood Count 9.9 x10^3/uL (4.0-10.5)
[2022-04-13 17:23] LABS: ALBUMIN 4.1 g/dL (3.5-5.0); ALKALINE PHOSPHATASE 111 U/L (38-126); ANION GAP 10.3 MEQ/L (5-15); BLOOD UREA NITROGEN 21 mg/dL (9-20); CHLORIDE 103 mmol/L (98-107); CK-Creatinine Phosphokinase 85 U/L (55-170); Calcium 8.8 mg/dL (8.4-10.2); Carbon Dioxide 27 mmol/L (22-30); Creatinine 1 0.87 mg/dL (0.66-1.25); EST GLOMERULAR FILTRATION RATE > 60.0 ML/MIN; Glucose 107 mg/dL (74-106); NT PRO BNP 61.4 pg/mL (0-900); SGOT/AST 37 U/L (17-59); SGPT/ALT 62 U/L (0-50); SODIUM 137 mmol/L (137-145); Total Protein 7.4 g/dL (6.3-8.2)
--- NOTE | 2022-04-13 17:33 | ERPHSYRPT ---
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 Patient has a positive loss of consciousness briefly. No seizure-like activity noticed. Patient woke up and still having mild headache frontal area and complaining of low back pain which is improving. Patient has history of chronic low back pain. No chest pain palpitations or shortness of breath. No abdominal pain nausea or vomiting. Denies any new weakness. No visual disturbance or difficulty speech. Occurred: just prior to arrival Injuries/Pain Location: head Loss of Consciousness: brief (seconds) Quality: sharpness Severity of Pain-Max: moderate Severity of Pain-Current: moderate Modifying Factors: Improves With: nothing Associated Symptoms (Fall): back pain, headache, muscle spasms, trouble walking, No abdominal pain, No confusion, No chest pain, No dizziness, No extremity injury, No lightheadedness, No nausea, No neck pain, No ringing in ears, No seizures, No shortness of breath, No slurred speech, No vomiting, No vision changes Allergies/Adverse Reactions: No Known Drug Allergies Allergy (Verified 04/13/22 16:22) Home Medications: AMITRIPTYLINE HCL 50 mg Tab [AMITRIPTYLINE HCL 50 mg Tablet] 50 mg PO BID 02/27/22 [History] Cetirizine HCl 10 mg PO DAILY 02/27/22 [History] Gabapentin 900 mg PO TID PRN PRN 02/27/22 [History] Amlodipine Besylate/Benazepril [Amlodipine-Benazepril 5-20 mg] 1 each PO DAILY 03/19/22 [History] Meclizine HCl 25 mg [Antivert 25 mg] 25 mg PO Q6HPRN PRN 03/19/22 [History] Melatonin 5 mg PO HS 03/19/22 [History] Nicotine 21 mg [Nicoderm CQ 21 MG] 21 mg TOP DAILY 03/19/22 [History] Venlafaxine HCl [Venlafaxine HCl ER] 150 mg PO DAILY 03/19/22 [History] Hx Tetanus, Diphtheria Vaccination/Date Given: No Hx Influenza Vaccination/Date Given: No Hx Pneumococcal Vaccination/Date Given: Yes Travel Risk - International Travel Have you traveled outside of the country in past 3 weeks: No - Coronavirus Screening Are you exhibiting any of the following symptoms?: No - Vaccine Status Have you recieved a Covid-19 vaccination: Yes 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: [employer] - Vaccination Dates Dates if Unknown: unknown - Review of Systems Constitutional: Fatigue Eyes: No Symptoms Ears, Nose, & Throat: No Symptoms Respiratory: No Symptoms Cardiac: No Symptoms Abdominal/Gastrointestinal: No Symptoms Genitourinary Symptoms: No Symptoms Musculoskeletal: Arthralgias, Back Pain Skin: No Symptoms Neurological: Headache Psychological: Anxiety Endocrine: No Symptoms Hematologic/Lymphatic: No Symptoms Immunological/Allergic: No Symptoms - Past Medical History Pertinent Past Medical History: Yes Neurological History: Stroke, TIA, Other ENT History: No Pertinent History Cardiac History: Hypertension, Myocardial Infarction ([place]) Respiratory History: No Pertinent History Endocrine Medical History: No Pertinent History Musculoskeletal History: Arthritis GI Medical History: No Pertinent History History: No Pertinent History Psycho-Social History: Depression Male Reproductive Disorders: No Pertinent History - Past Surgical History Past Surgical History: Yes Neuro Surgical History: No Pertinent History Cardiac: No Pertinent History Respiratory: No Pertinent History Gastrointestinal: Cholecystectomy Genitourinary: No Pertinent History Musculoskeletal: Joint Replacement Male Surgical History: No Pertinent History Other Surgical History: Left total knee replacement - Social History Smoking Status: Former smoker How long have you smoked: years Exposure to second hand smoke: No Drug Use: none Patient Lives Alone: No - Nursing Vital Signs Nursing Vital Signs: Initial Vital Signs Pulse Rate 104 H 04/13/22 16:10 Blood Pressure 146/89 04/13/22 16:10 O2 Sat by Pulse Oximetry 97 12/31/22 16:10 Pain Scale Pain Intensity [Lower 4 Posterior Back] Pain Intensity 0 - [place] Coma Score Best Eye Response ([place]): (4) open spontaneously Best Verbal Response ([place]): (5) oriented Best Motor Response ([place]): (6) obeys commands [place] Total: 15 - Physical Exam General Appearance: no apparent distress, alert, anxiety Head Injury: contusions (Mild redness forehead), No active bleeding, No Johnson's Sign, No raccoon eyes, No tenderness Eye Exam: PERRL/EOMI, eyes nml inspection ENT Exam: airway nml, No evidence of ENT injury, No dental injury Neck Exam: supple, trachea midline, full range of motion, normal alignment, normal inspection Respiratory/Chest Exam: normal breath sounds, respiratory distress, No chest tenderness Cardiovascular Exam: normal heart sounds, regular rate/rhythm Gastrointestinal Exam: soft Back Exam: normal inspection, decreased range of motion, muscle spasm Extremity Exam: capillary refill <3 sec, motor deficit Neurologic Exam: alert, 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, cooperative, technology coach II-XII nml as tested, normal mood/affect Skin Exam: normal color SpO2 Interpretation: normal SpO2: 97 O2 Delivery: Room Air - Course EKG Interpreted by Me: RATE (96), Sinus Rhythm, NORMAL AXIS, NORMAL INTERVALS, NORMAL QRS Ordered Tests: Active Orders 24 hr Category Date Time Status 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 Care 04/13/22 16:32 Active EKG-ER Only STAT Care 04/13/22 16:31 Active IV Insertion STAT Care 04/13/22 16:31 Active CERVICAL SPINE WO CONTRAST [CT] Stat Exams 04/13/22 17:42 Taken CHEST 1 VIEW (PORTABLE) Stat Exams 04/13/22 18:15 Completed HEAD WITHOUT CONTRAST [CT] Stat Exams 04/13/22 16:31 Taken LUMBAR SPINE W/O [CT] Stat Exams 04/13/22 17:15 Taken CBC W DIFF Stat Lab 04/13/22 16:54 Completed CK-Creatinine Phosphokinase Stat Lab 04/13/22 16:54 Completed CMP Stat Lab 04/13/22 16:54 Completed NT PRO BNP Stat Lab 04/13/22 16:54 Completed TROPONIN Q4H Lab 04/14/22 00:45 Ordered TROPONIN Q4H Lab 04/13/22 16:54 Completed TROPONIN Q4H Lab 04/13/22 20:45 Ordered Medication Summary Discontinued Medications Generic Name Dose Route Start Last Admin Trade Name Albino PRN Reason Stop Dose Admin Acetaminophen 975 mg 04/13/22 16:32 04/13/22 16:36 Acetaminophen 325 Mg Tablet PO 04/13/22 16:33 975 mg STAT STA Administration Acetaminophen Confirm 04/13/22 16:36 Acetaminophen 325 Mg Tablet Administered 04/13/22 16:37 Dose 975 mg .ROUTE .STK-MED ONE Lab/Rad Data: Laboratory Result Diagrams 04/13/22 16:54 04/13/22 16:54 Laboratory Results 04/13/22 04/13/22 04/13/22 Range/Units 16:54 16:54 16:54 WBC 9.9 (4.0-10.5) x10^3/uL RBC 4.47 (4.1-5.6) x10^6/uL Hgb 13.5 (12.5-18.0) g/dL Hct 41.4 L (42-50) % MCV 92.6 (78-100) fL MCH 30.2 (26-32) pg MCHC 32.6 (32-36) g/dL RDW 13.8 (11.5-14.0) % Plt Count 265 (150-450) x10^3/uL MPV 9.8 (7.5-11.0) fL Gran % 65.5 (36.0-66.0) % Immature Gran % (Auto) 0.5 H (0.00-0.4) % Nucleat RBC Rel Count 0.0 (0.00-0.1) % Eos # (Auto) 0.29 (0-0.5) x10^3/uL Immature Gran # (Auto) 0.05 H (0.00-0.03) x10^3u/L Absolute Lymphs (auto) 2.09 (1.0-4.6) x10^3/uL Absolute Monos (auto) 0.89 (0.0-1.3) x10^3/uL Absolute Nucleated RBC 0.00 (0.00-0.01) x10^3u/L Lymphocytes % 21.2 L (24.0-44.0) % Monocytes % 9.0 (0.0-12.0) % Eosinophils % 2.9 (0.00-5.0) % Basophils % 0.9 (0.0-0.4) % Absolute Granulocytes 6.44 (1.4-6.9) x10^3/uL Basophils # 0.09 (0-0.4) x10^3/uL Sodium 137 (137-145) mmol/L Potassium 4.0 (3.5-5.1) mmol/L Chloride 103 (98-107) mmol/L Carbon Dioxide 27 (22-30) mmol/L Anion Gap 10.3 (5-15) MEQ/L BUN 21 H (9-20) mg/dL Creatinine 0.87 (0.66-1.25) mg/dL Estimated GFR > 60.0 ML/MIN Glucose 107 H (74-106) mg/dL Calcium 8.8 (8.4-10.2) mg/dL Total Bilirubin 0.30 (0.2-1.3) mg/dL AST 37 (17-59) U/L ALT 62 H (0-50) U/L Alkaline Phosphatase 111 (38-126) U/L Creatine Kinase 85 (55-170) U/L Troponin I < 0.012 (0.000-0.034) ng/mL NT-Pro-B Natriuret Pep 61.4 (0-900) pg/mL Serum Total Protein 7.4 (6.3-8.2) g/dL Albumin 4.1 (3.5-5.0) g/dL - Progress Progress: improved Progress Note: 04/13/22 19:40 Patient is not in any distress, complaining of some headache, given Tylenol and on reevaluation headache is improved. Obtain CT head cervical spine and lumbar spine which are negative for any acute trauma related findings. Has chronic degenerative changes. Chest x-ray negative for any acute cardiopulmonary findings reviewed by me. To me patient stated that he is main complaint is a headache and back pain is improved normal white count, fairly unremarkable chemistries. Patient probably have a concussion with loss of consciousness and fall seems to be mechanical. EKG normal sinus with no ischemic changes and negative troponins. Not having any chest pain or difficulty breathing. Do not think patient needs to be admitted and can be discharged with outpatient follow- up. 04/13/22 19:44 Counseled pt/family regarding: lab results, diagnosis, need for follow-up, rad results - Departure Departure Disposition: Home Clinical Impression: Concussion, Forehead contusion, Fall Condition: Stable Critical Care Time: No Referrals: DELMI BOLAND MD [Primary Care Provider] - Follow up/PCP as directed (1-2 days for reevaluation) Instructions: Concussion, Adult (DC), Closed Head Injury (DC) Additional Instructions: Follow head injury/concussion instructions and return to ER for any worsening. Use wheelchair for moving around all the time. Follow-up with primary care for reevaluation early next week. Stay with responsible person for next 48 hours with frequent neurochecks, return to ER for worsening headache, blurry vision, numbness tingling focal weakness or worsening back pain.
--- NOTE | 2022-04-13 19:15 | XRAY ---
Indication: Syncope. Status post fall. Comparison: February 28, 2022 Portable apical lordotic chest remains hyperinflated and clear. Heart not enlarged. Bony thorax intact again with mild osteopenia and degenerative changes. No new/acute findings.
[2022-04-13 20:08] VITALS: BP 144/95
[2022-04-13 20:09] VITALS: PULSE 86
[2022-04-13 20:16] VITALS: O2SAT 97
--- NOTE | 2022-04-13 20:29 | XRAY ---
Indication: Syncope. Status post fall. Headache and neck pain. Multiple contiguous axial images obtained through the head without contrast. Comparison: March 18, 2022 Again age-appropriate global atrophy, mild periventricular degenerative micro-ischemia, and multifocal small remote infarcts right basal ganglia. No acute and coronal hemorrhage, abnormal extra-axial fluid collection, or mass effect. Fourth ventricle is midline without hydrocephalus. Bony calvarium intact. Again opacification visualized left maxillary and right mastoid air cells again presumed inflammatory. Impression: 1. Continued nonacute senile brain again with multifocal remote infarcts right basal ganglia. 2. Again incidental paranasal sinus disease. Comment: Preliminary interpretation made by [facility]. No critical discrepancy.
--- NOTE | 2022-04-13 20:32 | XRAY ---
Indication: Syncope. Status post fall. Headache and neck pain. Multiple contiguous axial images obtained through the cervical spine. Sagittal and coronal reformatted images obtained. Comparison: February 27, 2022 Axial images negative for acute fracture, suspicious bony lesions, or spinal canal stenosis. Stable mild multilevel degenerative endplate spurring and mild/moderate multilevel bilateral degenerative facet hypertrophy. Sagittal and coronal reformatted images demonstrates lordotic reversal, positional versus paraspinal spasm. Minimal C5-T2 disc space narrowing. No acute compression fracture, subluxation, or jumped facet. Normal appearing craniocervical junction. Visualized noncontrasted soft tissues are unremarkable. Impression: 1. Cervical lordotic straining, positional versus paraspinal spasm. 2. Negative acute fracture/subluxation. 3. Again multilevel degenerative changes. Comment: Preliminary interpretation made by [facility]. No critical discrepancy.
--- NOTE | 2022-04-13 20:34 | XRAY ---
Indication: Low back pain following fall. Multiple contiguous axial images obtained through the lumbar spine. Sagittal and coronal reformatted images obtained. Comparison: None Axial images negative for acute fracture, suspicious bony lesions, or spinal canal stenosis. Minimal multilevel thoracolumbar endplate spurring. L3-S1 levels demonstrates mild broad-based disc bulge. Facets are symmetric with mild bilateral L5-S1 degenerative facet arthropathy. Sagittal and coronal reformatted images demonstrate normal alignment with vertebral body heights/disc spaces maintained. No acute compression fracture or subluxation. Visualized noncontrasted soft tissues demonstrates mild aortoiliac calcifications. Impression: 1. Negative acute fracture/subluxation. 2. Mild multilevel degenerative spondylosis better evaluated with outpatient MRI. Comment: Preliminary interpretation made by [facility]. No critical discrepancy.
== END 2022-04-13 20:30 | disposition home or self-care (01) ==
LOC: ED 16:07
DX: S06.0X1A Concussion with loss of consciousness of 30 minutes or less, initial encounter (principal); S00.83XA Contusion of other part of head, initial encounter; W05.0XXA Fall from non-moving wheelchair, initial encounter; Y92.128 Other place in nursing home as the place of occurrence of the external cause; M54.50 Low back pain, unspecified; I10 Essential (primary) hypertension; Z79.899 Other long term (current) drug therapy
CPT/HCPCS: 36415; 70450; 71045; 72125; 72131; 80053; 82550; 83880; 84484; 85025; 93005; 93041; 99284; A9270-GY